=== PATIENT | male | born 1985 | race Caucasian/White ===

== ENCOUNTER 2018-03-06 12:34 | Emergency (ER) | payer OTHER ==
[2018-03-06 13:04] VITALS: BP 115/71; PULSE 70; RESP 20; TEMP 98
[2018-03-06] MEDS ORDERED: KETOROLAC 30 MG/ML 1 ML VIAL IM STA (13:42)
[2018-03-06] MEDS: ORPHENADRINE 30 MG/ML 2 ML VIAL IM STA ×2 (13:49→14:25)
--- NOTE | 2018-03-06 13:53 | ED ---
Back Pain HPI - General Chief Complaint: Back Pain/Injury Stated Complaint: chest/back pain Time Seen by Provider: 03/06/18 13:35 Source: patient, RN notes reviewed Limitations: no limitations - History of Present Illness Initial Comments: This is a 32-year-old male who presents to the emergency department with chief complaint of back and chest pain. 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 Patient states that over the past 2 days he has had an increase in his mid back pain. He states that recently he had an increase in his work load. 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 He states that the compost is much heavier than the recycling. He states that today while at work he went to dump out a bin and felt a sharp pain in the right side of his chest. He denies any shortness of breath, diaphoresis, nausea or vomiting, dizziness or headache. He denies any family history of heart issues. Patient states that he is right handed so throws by rotating his arms and chest to the left. He denies any other injuries or trauma. - Related Data Previous Rx's Medication Instructions Recorded Cyclobenzaprine [Flexeril] 10 mg PO TID #12 tab 03/06/18 Ibuprofen 600 mg PO Q6HR #30 tablet 03/06/18 Allergies Allergy/AdvReac Type Severity Reaction Status Date / Time No Known Allergies Allergy Verified 03/06/18 13:28 Review of Systems ROS Statement: Those systems with pertinent positive or pertinent negative responses have been documented in the HPI. ROS Other: All systems not noted in ROS Statement are negative. Past Medical History Past Medical History: No Reported History History of Any Multi-Drug Resistant Organisms: None Reported Past Surgical History: No Surgical Hx Reported Past Psychological History: No Psychological Hx Reported Smoking Status: Current every day smoker Past Alcohol Use History: Rare Past Drug Use History: Marijuana General Exam - General Exam Comments Initial Comments: General: Awake and alert, well-developed; in no apparent distress. HEENT: Head atraumatic, normocephalic. Pupils are equal, round and reactive to light. Extraocular movements intact. Oropharynx moist without erythema or exudate. Neck: Supple. Normal ROM. Cardiovascular: Regular rate and rhythm. No murmurs, rubs or gallops. Chest symmetrical. Tenderness on palpation of right costal cartilage and connecting ribs. Respiratory: Lungs clear to auscultation bilaterally. No wheezes, rales or rhonchi. Normal respiratory effort with no use of accessory muscles. Musculoskeletal: Normal ROM, no tenderness bilateral upper and lower extremities. Ambulating normally. Tenderness on palpation thoracic paraspinal muscles, more so on the right side. Sensation is intact. Pedal pulses are 2+ equal and palpable bilaterally. Skin: [place], warm and dry without rashes or lesions. Neurological: Alert and oriented x3. CN II-XII grossly intact. Speech is fluent and answers are appropriate. No focal neuro deficits. Psychiatric: Normal mood and affect. No overt signs of depression or anxiety noted. Limitations: no limitations Course Vital Signs 03/06/18 13:01 Temperature 98.0 F Pulse Rate 70 Respiratory 20 Rate Blood Pressure 115/71 O2 Sat by Pulse 98 Oximetry Medical Decision Making - Medical Decision Making This is a 32-year-old male who presents to the emergency department with chief complaint of back pain that radiates to his chest. Patient states that he does have chronic back pain. 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 He states that 2 days ago he developed an increase in his back pain and today developed a pain in the right side of his chest. Right-sided costal cartilage and connecting ribs are tender on palpation. Thoracic paraspinal muscles are tender on palpation. Lungs are clear to auscultation bilaterally. EKG revealed sinus bradycardia, however no evidence of ST segment elevation or depression. Chest x-ray did reveal evidence for bronchitis or reactive airways disease. Patient does state that he is a current, every day smoker and denies shortness of breath or recent fevers. Vital signs are stable and patient is afebrile. He is in no acute distress. Patient likely suffering from costochondritis and muscle strain. He will be treated with anti-inflammatories and muscle relaxers. Patient will be discharged home at this time. He is in agreement with plan and voices understanding. All questions were answered. - EKG Data EKG Comments: 14:01:28. Sinus bradycardia. Ventricular rate 51 bpm, TN interval 128, QRS duration 90, QT/QTC 388/357 - Radiology Data Radiology results: report reviewed Chest x-ray impression: Correlate to exclude bronchitis, reactive airways disease. Additional findings above. Follow-up as indicated. Disposition Clinical Impression: Thoracic back pain, Chest wall pain Disposition: HOME SELF-CARE Condition: Good Instructions: Thoracic Back Strain (ED), Chest Wall Pain (ED) Additional Instructions: Please take medications as prescribed. Please follow up with primary care provider within 1-2 days. Return to emergency department if symptoms should worsen or any concerns arise. Prescriptions: Cyclobenzaprine [Flexeril] 10 mg PO TID #12 tab Ibuprofen 600 mg PO Q6HR #30 tablet Is patient prescribed a controlled substance at d/c from ED?: No Referrals: None,Stated [Primary Care Provider] - 1-2 days Time of Disposition: 14:22
--- NOTE | 2018-03-06 14:03 | XR ---
EXAMINATION TYPE: XR chest 2V DATE OF EXAM: 03/06/2018 COMPARISON: NONE HISTORY: Chest wall pain TECHNIQUE: Frontal and lateral views of the chest are obtained. FINDINGS: There is no focal air space opacity, pleural effusion, or pneumothorax seen. The cardiac silhouette size is within normal limits. The osseous structures are intact. Question of superior di splacement of the distal clavicles relation to the acromion may be projectional and is symmetric. Que stion bronchial wall thickening. IMPRESSION: Correlate to exclude bronchitis, reactive airways disease. Additional findings above. Fo llow-up as indicated.
== END 2018-03-06 14:35 | disposition home or self-care (01) ==
LOC: EC 12:34
DX: G89.29 Other chronic pain (principal); M54.6 Pain in thoracic spine; R07.89 Other chest pain; R00.1 Bradycardia, unspecified; F17.200 Nicotine dependence, unspecified, uncomplicated; Z53.20 Procedure and treatment not carried out because of patient's decision for unspecified reasons
CPT/HCPCS: 93005; 71046; 99285; 96372; J1885

== ENCOUNTER → 2018-04-07 | Outpatient (CLI) | payer OTHER ==
--- NOTE | 2018-04-08 08:07 | XR ---
EXAMINATION TYPE: XR thoracic spine complete DATE OF EXAM: 04/07/2018 COMPARISON: NONE HISTORY: Back pain Alignment is anatomic. There is no compression deformities. Vertebral body height and disc interspa yoandy are maintained. Curvature of the spine noted. IMPRESSION: 1. No acute abnormality.
== END | disposition home or self-care (01) ==
LOC: RADXRMAIN 16:21
PROVIDERS: ATTEND Family Medicine
DX: M54.6 Pain in thoracic spine (principal)
CPT/HCPCS: 72072

== ENCOUNTER → 2018-05-12 | Outpatient (CLI) | payer OTHER ==
--- NOTE | 2018-05-13 08:27 | XR ---
Lumbar spine HISTORY: Back pain 3 views of the lumbar spine No comparisons Lumbar vertebral bodies show preserved height, alignment, and bone mineralization. Disc spaces are ma intained. Mild multilevel spondylosis is noted. IMPRESSION: Lumbar spondylosis, consider MRI.
== END | disposition home or self-care (01) ==
LOC: RADXRMAIN 16:08
PROVIDERS: ATTEND Family Medicine
DX: M47.816 Spondylosis without myelopathy or radiculopathy, lumbar region (principal)
CPT/HCPCS: 72100

== ENCOUNTER 2019-05-23 08:29 | Inpatient (IN) | payer MEDICAID, OTHER ==
[2019-05-23] MEDS ORDERED: SODIUM CHLORIDE 0.9% 1,000 ML IV STA (08:41)
--- NOTE | 2019-05-23 09:10 | ED ---
General Adult HPI <Hermes Elias - Last Filed: 05/23/19 15:00> - General Source: patient, RN notes reviewed, old records reviewed Mode of arrival: ambulatory Limitations: no limitations <Solomon Bowling - Last Filed: 05/23/19 16:29> - General Chief complaint: Overdose Stated complaint: Vomiting-overdose Time Seen by Provider: 05/23/19 08:41 - History of Present Illness Initial comments: 33-year-old male patient with no pertinent past medical history presents ED chief complaint of suicidal ideations and depression. Patient was these been going through a bed breakup with significant other. Patient works in the last week he has been taking narcotic pain medications are not prescribed to him. Frederic dawkins reports that he has been taking multiple Vicodin per day. Patient also reports that he has taken approximately 5 Xanax pills last 24 hours. Patient reports taking approximately 3-4 ibuprofens as well. Patient denies taking any other medications. Patient reports that he has had the cellulitis had nausea and vomiting for approximately 3 hours. Patient denies any other complaints. Patient denies any pain anywhere. Systemic: Pt denies fatigue, fever/chills, rash. Pt denies weakness, night sweats, weight loss. Neuro: Pt denies headache, visual disturbances, syncope or pre-syncope. HEENT: Pt denies ocular discharge or irritation, otalgia, rhinorrhea, pharyngitis or notable lymphadenopathy. Cardiopulmonary: Pt denies chest pain, SOB, heart palpitations, dyspnea on exertion. Abdominal/GI: Pt denies abdominal pain, n/v/d. : Pt denies dysuria, burning w/ urination, frequency/urgency. Denies new onset urinary or bowel incontinence. MSK: Pt denies myalgia, loss of strength or function in extremities. Neuro: Pt denies new onset weakness, paresthesias. (Solomon Bowling) - Related Data Home Medications Medication Instructions Recorded Confirmed Dextroamphetamine/Amphetamine 20 mg PO DAILY 05/23/19 05/23/19 [Adderall Xr] Allergies Allergy/AdvReac Type Severity Reaction Status Date / Time No Known Allergies Allergy Verified 05/23/19 08:52 Review of Systems ROS Other: All systems not noted in ROS Statement are negative. <CurtHermes - Last Filed: 05/23/19 15:00> ROS Other: All systems not noted in ROS Statement are negative. <Solomon Bowling - Last Filed: 05/23/19 16:29> ROS Statement: Those systems with pertinent positive or pertinent negative responses have been documented in the HPI. Past Medical History Past Medical History: No Reported History History of Any Multi-Drug Resistant Organisms: None Reported Past Surgical History: Orthopedic Surgery Past Psychological History: No Psychological Hx Reported Smoking Status: Current every day smoker Past Alcohol Use History: Rare Past Drug Use History: Marijuana <VanessaSolomon mitchell Elizabeth - Last Filed: 05/23/19 16:29> General Exam Limitations: no limitations <Solomon Bowling Elizabeth - Last Filed: 05/23/19 16:29> - General Exam Comments Initial Comments: Constitutional: NAD, AOX3, Pt has pleasant affect. HEENT: NC/AT, trachea midline, neck supple, no lymphadenopathy. Posterior pharynx non erythematous, without exudates. External ears appear normal, without discharge. Mucous membranes moist. Eyes PERRLA, EOM intact. There is no scleral icterus. No pallor noted. Cardiopulmonary: RRR, no murmurs, rubs or gallops, no JVD noted. Lungs CTAB in anterior and posterior bryant. No peripheral edema. Abdominal exam: Abdomen soft and non-distended. Abdomen non-tender to palpation in all 4 quadrants. Bowel sounds active in LLQ. No hepatosplenomegaly. No ecchymosis Neuro: CN II-XII intact. No nuchal rigidity. No raccon eyes, no harvey sign, no hemotympanum. No cervical spinal tenderness. MSK: No posterior calf tenderness bilaterally, homans sign negative bilaterally. Posterior tibialis and radial pulse +2 bilaterally. Sensation intact in upper and lower extremities. Full active ROM in upper and lower extremities, 5/5 stregnth. (Solomon Bowling) Course <Hermes Elias - Last Filed: 05/23/19 15:00> Vital Signs 05/23/19 05/23/19 05/23/19 08:30 09:08 09:30 Temperature 97.6 F Pulse Rate 82 66 65 Respiratory 18 16 16 Rate Blood Pressure 133/73 114/69 114/69 O2 Sat by Pulse 98 96 97 Oximetry 05/23/19 05/23/19 05/23/19 10:00 10:30 11:00 Temperature Pulse Rate 68 78 76 Respiratory 15 17 16 Rate Blood Pressure 99/64 100/69 110/68 O2 Sat by Pulse 97 98 97 Oximetry 05/23/19 05/23/19 05/23/19 11:30 12:00 12:30 Temperature Pulse Rate 73 68 66 Respiratory 18 18 18 Rate Blood Pressure 114/74 111/72 113/72 O2 Sat by Pulse 98 97 96 Oximetry 05/23/19 05/23/19 05/23/19 13:00 13:30 14:00 Temperature Pulse Rate 61 66 80 Respiratory 18 16 18 Rate Blood Pressure 115/75 106/77 112/78 O2 Sat by Pulse 98 97 Oximetry 05/23/19 05/23/19 05/23/19 14:30 15:00 15:30 Temperature Pulse Rate 62 75 74 Respiratory 18 Rate Blood Pressure 124/84 115/82 120/81 O2 Sat by Pulse 97 97 98 Oximetry 05/23/19 16:00 Temperature Pulse Rate 66 Respiratory Rate Blood Pressure 121/90 O2 Sat by Pulse 99 Oximetry - Reevaluation(s) Reevaluation #1: 05/23/19 15:01 PA supervision I personally did evaluate this case and do agree with the assessment and plan patient be admitted. (Hermes Elias) Medical Decision Making - Lab Data Result diagrams: 05/23/19 09:05 05/23/19 09:05 <Hermes Elias - Last Filed: 05/23/19 15:00> - Lab Data Result diagrams: 05/23/19 09:05 05/23/19 09:05 - EKG Data -: EKG Interpreted by Me (and Dr. Elias) <Solomon Bowling - Last Filed: 05/23/19 16:29> - Medical Decision Making 33-year-old male patient with no pertinent past medical history presents ED chief complaint of suicidal ideations and depression. Patient was these been going through a bed breakup with significant other. Patient works in the last week he has been taking narcotic pain medications are not prescribed to him. Patient reports that he has been taking multiple Vicodin per day. Patient also reports that he has taken approximately 5 Xanax pills last 24 hours. Patient reports taking approximately 3-4 ibuprofens as well. Patient denies taking any other medications. Patient reports that he has had the cellulitis had nausea and vomiting for approximately 3 hours. Patient denies any other complaints. Patient denies any pain anywhere. Patient vital signs stable, afebrle. Physical exam did not display acute pathology. Labs investigations displayed non- impressive CBC, CMP, coagulation studies. Troponin negative, UA negative, tox screen revealed positive opiates, amphetamines, benzodiazepines, marijuana. Salicylate and acetaminophen negative. Serum alcohol 11. EKG not concerning For acute ischemia. Patient evaluated by EPS and will be admitted. Poison control was contacted and is in agreement with plan. Case discussed with Dr. Elias. (Solomon Bowling) - Lab Data Lab Results 05/23/19 05/23/19 05/23/19 Range/Units 09:05 09:05 09:05 WBC 7.3 (3.8-10.6) k/uL RBC 4.39 (4.30-5.90) m/uL Hgb 13.8 (13.0-17.5) gm/dL Hct 40.5 (39.0-53.0) % MCV 92.2 (80.0-100.0) fL MCH 31.4 (25.0-35.0) pg MCHC 34.1 (31.0-37.0) g/dL RDW 12.8 (11.5-15.5) % Plt Count 199 (150-450) k/uL Neutrophils % 54 % Lymphocytes % 37 % Monocytes % 5 % Eosinophils % 1 % Basophils % 0 % Neutrophils # 4.0 (1.3-7.7) k/uL Lymphocytes # 2.7 (1.0-4.8) k/uL Monocytes # 0.4 (0-1.0) k/uL Eosinophils # 0.1 (0-0.7) k/uL Basophils # 0.0 (0-0.2) k/uL PT 10.8 (9.0-12.0) sec INR 1.0 (<1.2) APTT 22.2 (22.0-30.0) sec Sodium 140 (137-145) mmol/L Potassium 3.5 (3.5-5.1) mmol/L Chloride 104 (98-107) mmol/L Carbon Dioxide 26 (22-30) mmol/L Anion Gap 10 mmol/L BUN 5 L (9-20) mg/dL Creatinine 0.75 (0.66-1.25) mg/dL Est GFR (CKD-EPI)AfAm >90 (>60 ml/min/1.73 sqM) Est GFR (CKD-EPI)NonAf >90 (>60 ml/min/1.73 sqM) Glucose 102 H (74-99) mg/dL Calcium 8.7 (8.4-10.2) mg/dL Total Bilirubin 0.4 (0.2-1.3) mg/dL AST 20 (17-59) U/L ALT 25 (21-72) U/L Alkaline Phosphatase 45 (38-126) U/L Creatine Kinase 77 (55-170) U/L Troponin I (0.000-0.034) ng/mL Total Protein 6.6 (6.3-8.2) g/dL Albumin 4.0 (3.5-5.0) g/dL Urine Color Urine Appearance (Clear) Urine pH (5.0-8.0) Ur Specific [place] (1.001-1.035) Urine Protein (Negative) Urine Glucose (UA) (Negative) Urine Ketones (Negative) Urine Blood (Negative) Urine Nitrite (Negative) Urine Bilirubin (Negative) Urine Urobilinogen (<2.0) mg/dL Ur Leukocyte Esterase (Negative) Salicylates <1.0 mg/dL Urine Opiates Screen (NotDetected) Ur Oxycodone Screen (NotDetected) Urine Methadone Screen (NotDetected) Ur Propoxyphene Screen (NotDetected) Acetaminophen <10.0 ug/mL Ur Barbiturates Screen (NotDetected) U Tricyclic Antidepress (NotDetected) Ur Phencyclidine Scrn (NotDetected) Ur Amphetamines Screen (NotDetected) U Methamphetamines Scrn (NotDetected) U Benzodiazepines Scrn (NotDetected) Urine Cocaine Screen (NotDetected) U Marijuana (THC) Screen (NotDetected) Serum Alcohol 11 mg/dL 05/23/19 05/23/19 Range/Units 09:05 11:54 WBC (3.8-10.6) k/uL RBC (4.30-5.90) m/uL Hgb (13.0-17.5) gm/dL Hct (39.0-53.0) % MCV (80.0-100.0) fL MCH (25.0-35.0) pg MCHC (31.0-37.0) g/dL RDW (11.5-15.5) % Plt Count (150-450) k/uL Neutrophils % % Lymphocytes % % Monocytes % % Eosinophils % % Basophils % % Neutrophils # (1.3-7.7) k/uL Lymphocytes # (1.0-4.8) k/uL Monocytes # (0-1.0) k/uL Eosinophils # (0-0.7) k/uL Basophils # (0-0.2) k/uL PT (9.0-12.0) sec INR (<1.2) APTT (22.0-30.0) sec Sodium (137-145) mmol/L Potassium (3.5-5.1) mmol/L Chloride (98-107) mmol/L Carbon Dioxide (22-30) mmol/L Anion Gap mmol/L BUN (9-20) mg/dL Creatinine (0.66-1.25) mg/dL Est GFR (CKD-EPI)AfAm (>60 ml/min/1.73 sqM) Est GFR (CKD-EPI)NonAf (>60 ml/min/1.73 sqM) Glucose (74-99) mg/dL Calcium (8.4-10.2) mg/dL Total Bilirubin (0.2-1.3) mg/dL AST (17-59) U/L ALT (21-72) U/L Alkaline Phosphatase (38-126) U/L Creatine Kinase (55-170) U/L Troponin I <0.012 (0.000-0.034) ng/mL Total Protein (6.3-8.2) g/dL Albumin (3.5-5.0) g/dL Urine Color Light Yellow Urine Appearance Clear (Clear) Urine pH 6.5 (5.0-8.0) Ur Specific [place] 1.007 (1.001-1.035) Urine Protein Negative (Negative) Urine Glucose (UA) Negative (Negative) Urine Ketones Negative (Negative) Urine Blood Negative (Negative) Urine Nitrite Negative (Negative) Urine Bilirubin Negative (Negative) Urine Urobilinogen <2.0 (<2.0) mg/dL Ur Leukocyte Esterase Negative (Negative) Salicylates mg/dL Urine Opiates Screen Detected H (NotDetected) Ur Oxycodone Screen Not Detected (NotDetected) Urine Methadone Screen Not Detected (NotDetected) Ur Propoxyphene Screen Not Detected (NotDetected) Acetaminophen ug/mL Ur Barbiturates Screen Not Detected (NotDetected) U Tricyclic Antidepress Not Detected (NotDetected) Ur Phencyclidine Scrn Not Detected (NotDetected) Ur Amphetamines Screen Detected H (NotDetected) U Methamphetamines Scrn Not Detected (NotDetected) U Benzodiazepines Scrn Detected H (NotDetected) Urine Cocaine Screen Not Detected (NotDetected) U Marijuana (THC) Screen Detected H (NotDetected) Serum Alcohol mg/dL - EKG Data EKG Comments: Ventricular rate 60, NV interval 134, QRS 96, QT/QTC 380/44, normal sinus rhythm, normal EKG, no concern for acute ischemia. (Solomon Bowling) Disposition <Hermes Elias - Last Filed: 05/23/19 15:00> Is patient prescribed a controlled substance at d/c from ED?: No <Solomon Bowling - Last Filed: 05/23/19 16:29> Clinical Impression: Suicidal ideations, Substance abuse Disposition: ADMITTED IP TO THIS HOSP Condition: Serious Referrals: Christian Sorto MD [Primary Care Provider] - 1-2 days
[2019-05-23 09:23] LABS: Basophils % (A) 0 %; Eosinophils # (A) 0.1 k/uL (0-0.7); Eosinophils % (A) 1 %; HCT 40.5 % (39.0-53.0); HGB 13.8 gm/dL (13.0-17.5); Lymphocytes # (A) 2.7 k/uL (1.0-4.8); Lymphocytes % (A) 37 %; MCH 31.4 pg (25.0-35.0); MCHC 34.1 g/dL (31.0-37.0); MCV 92.2 fL (80.0-100.0); Mean Platelet Volume 9.7; Monocytes # (A) 0.4 k/uL (0-1.0); Monocytes % (A) 5 %; Neutrophils % (A) 54 %; Platelet Count 199 k/uL (150-450); RBC 4.39 m/uL (4.30-5.90); RDW 12.8 % (11.5-15.5); WBC 7.3 k/uL (3.8-10.6)
[2019-05-23 09:37] LABS: ALT 25 U/L (21-72); AST 20 U/L (17-59); Acetaminophen <10.0 ug/mL; African American GFR (CKD) >90 (>60 ml/min/1.73 sqM); Alcohol 11 mg/dL; Alkaline Phosphatase 45 U/L (38-126); Anion Gap 10 mmol/L; Blood Urea Nitrogen 5 mg/dL (9-20); Calcium 8.7 mg/dL (8.4-10.2); Carbon Dioxide 26 mmol/L (22-30); Chloride 104 mmol/L (98-107); Creatine Kinase 77 U/L (55-170); Glucose 102 mg/dL (74-99); Potassium 3.5 mmol/L (3.5-5.1); Salicylate <1.0 mg/dL; Sodium 140 mmol/L (137-145); Total Bilirubin 0.4 mg/dL (0.2-1.3); Total Protein 6.6 g/dL (6.3-8.2)
[2019-05-23 09:39] LABS: Partial Thromboplastin Time 22.2 sec (22.0-30.0); Prothrombin Time 10.8 sec (9.0-12.0)
[2019-05-23 12:07] LABS: Appearance,Urine Clear (Clear); Bilirubin,Urine Negative (Negative); Blood,Urine Negative (Negative); Color,Urine Light Yellow; Glucose,Urine (UA) Negative (Negative); Ketones,Urine Negative (Negative); Leukocyte Esterase,Urine Negative (Negative); Nitrite,Urine Negative (Negative); PH, Urine 6.5 (5.0-8.0); Protein,Urine Negative (Negative); Specific Gravity,Urine 1.007 (1.001-1.035); Urobilinogen,Urine <2.0 mg/dL (<2.0)
[2019-05-23 12:21] LABS: Amphetamine Screen,Urine Detected (NotDetected); Barbiturate Screen,Urine Not Detected (NotDetected); Benzodiazepines Screen,Urine Detected (NotDetected); Cocaine Screen,Urine Not Detected (NotDetected); Methadone Screen, Urine Not Detected (NotDetected); Opiate Screen,Urine Detected (NotDetected); Oxycodone Screen, Urine Not Detected (NotDetected); Phencyclidine Screen,Urine Not Detected (NotDetected); Tricyclic Antidepressant,Urine Not Detected (NotDetected); Urn Cannabinoid Scrn Detected (NotDetected)
[2019-05-23 21:18] LABS: Basophils % (A) 0 %; Eosinophils # (A) 0.1 k/uL (0-0.7); Eosinophils % (A) 1 %; HCT 43.2 % (39.0-53.0); HGB 14.2 gm/dL (13.0-17.5); Lymphocytes # (A) 3.3 k/uL (1.0-4.8); Lymphocytes % (A) 32 %; MCH 30.8 pg (25.0-35.0); MCV 93.4 fL (80.0-100.0); Mean Platelet Volume 10.3; Monocytes # (A) 0.6 k/uL (0-1.0); Monocytes % (A) 5 %; Neutrophils # (A) 6.1 k/uL (1.3-7.7); Neutrophils % (A) 59 %; Platelet Count 192 k/uL (150-450); RBC 4.62 m/uL (4.30-5.90); RDW 14.1 % (11.5-15.5); WBC 10.3 k/uL (3.8-10.6)
[2019-05-23 21:23] LABS: ALT 26 U/L (21-72); AST 23 U/L (17-59); African American GFR (CKD) >90 (>60 ml/min/1.73 sqM); Alkaline Phosphatase 51 U/L (38-126); Anion Gap 6 mmol/L; Blood Urea Nitrogen 6 mg/dL (9-20); Calcium 9.3 mg/dL (8.4-10.2); Carbon Dioxide 26 mmol/L (22-30); Chloride 109 mmol/L (98-107); Glucose 87 mg/dL (74-99); Potassium 4.2 mmol/L (3.5-5.1); Sodium 141 mmol/L (137-145); Total Bilirubin 0.7 mg/dL (0.2-1.3); Total Protein 6.6 g/dL (6.3-8.2)
[2019-05-23] MEDS: NICOTINE 21MG/24HR PATCH TRANSDERM SCH (22:14)
[2019-05-24] MEDS: NICOTINE 21MG/24HR PATCH TRANSDERM SCH (18:09)
[2019-05-25] MEDS ORDERED: ACETAMINOPHEN TAB 325 MG TAB PO PRN (19:23)
[2019-05-25] MEDS ORDERED: ZIPRASIDONE 20 MG VIAL IM PRN (19:23)
[2019-05-25] MEDS ORDERED: MAG HYDROX/AL HYDROX/SIMETH 30 ML CUP PO PRN (19:23)
[2019-05-25] MEDS ORDERED: MAGNESIUM HYDROXIDE 2,400 MG/10 ML CUP PO PRN (19:23)
[2019-05-25] MEDS ORDERED: LORazepam 2 MG/ML INJ IM PRN (19:27)
[2019-05-25] MEDS ORDERED: LORazepam 1 MG TAB PO PRN (19:27)
[2019-05-26] MEDS: NICOTINE 21MG/24HR PATCH TRANSDERM SCH ×2 (05:09→09:38)
[2019-05-26] MEDS: FLUoxetine HCL 10 MG CAP PO SCH (12:31)
--- NOTE | 2019-05-26 13:56 | P.HP ---
Psychiatric H&P - . H&P Date: 05/26/19 History & Physical: Allergies Allergy/AdvReac Type Severity Reaction Status Date / Time No Known Allergies Allergy Verified 05/25/19 18:58 Vital Signs Temp 98.2 F 05/26/19 06:49 Pulse 58 L 05/26/19 06:49 Resp 16 05/26/19 06:49 BP 93/56 05/26/19 06:49 Pulse Ox 100 05/25/19 18:45 Intake & Output 05/25/19 05/26/19 05/26/19 18:59 06:59 18:59 Weight 54.431 kg Laboratory Last Values WBC 10.3 k/uL (3.8-10.6) 05/23/19 17:15 RBC 4.62 m/uL (4.30-5.90) 05/23/19 17:15 Hgb 14.2 gm/dL (13.0-17.5) 05/23/19 17:15 Hct 43.2 % (39.0-53.0) 05/23/19 17:15 MCV 93.4 fL (80.0-100.0) 05/23/19 17:15 MCH 30.8 pg (25.0-35.0) 05/23/19 17:15 MCHC 33.0 g/dL (31.0-37.0) 05/23/19 17:15 RDW 14.1 % (11.5-15.5) 05/23/19 17:15 Plt Count 192 k/uL (150-450) 05/23/19 17:15 Neutrophils % 59 % 05/23/19 17:15 Lymphocytes % 32 % 05/23/19 17:15 Monocytes % 5 % 05/23/19 17:15 Eosinophils % 1 % 05/23/19 17:15 Basophils % 0 % 05/23/19 17:15 Neutrophils # 6.1 k/uL (1.3-7.7) 05/23/19 17:15 Lymphocytes # 3.3 k/uL (1.0-4.8) 05/23/19 17:15 Monocytes # 0.6 k/uL (0-1.0) 05/23/19 17:15 Eosinophils # 0.1 k/uL (0-0.7) 05/23/19 17:15 Basophils # 0.0 k/uL (0-0.2) 05/23/19 17:15 PT 10.8 sec (9.0-12.0) 05/23/19 09:05 INR 1.0 (<1.2) 05/23/19 09:05 APTT 22.2 sec (22.0-30.0) 05/23/19 09:05 Sodium 141 mmol/L (137-145) 05/23/19 17:15 Potassium 4.2 mmol/L (3.5-5.1) 05/23/19 17:15 Chloride 109 mmol/L (98-107) H 05/23/19 17:15 Carbon Dioxide 26 mmol/L (22-30) 05/23/19 17:15 Anion Gap 6 mmol/L 05/23/19 17:15 BUN 6 mg/dL (9-20) L 05/23/19 17:15 Creatinine 0.72 mg/dL (0.66-1.25) 05/23/19 17:15 Est GFR (CKD-EPI)AfAm >90 (>60 ml/min/1.73 sqM) 05/23/19 17:15 Est GFR (CKD-EPI)NonAf >90 (>60 ml/min/1.73 sqM) 05/23/19 17:15 Glucose 87 mg/dL (74-99) 05/23/19 17:15 Calcium 9.3 mg/dL (8.4-10.2) 05/23/19 17:15 Total Bilirubin 0.7 mg/dL (0.2-1.3) 05/23/19 17:15 AST 23 U/L (17-59) 05/23/19 17:15 ALT 26 U/L (21-72) 05/23/19 17:15 Alkaline Phosphatase 51 U/L (38-126) 05/23/19 17:15 Creatine Kinase 77 U/L (55-170) 05/23/19 09:05 Troponin I <0.012 ng/mL (0.000-0.034) 05/23/19 09:05 Total Protein 6.6 g/dL (6.3-8.2) 05/23/19 17:15 Albumin 4.0 g/dL (3.5-5.0) 05/23/19 17:15 Triglycerides 167 mg/dL (<150) H 05/23/19 09:05 Cholesterol 137 mg/dL (<200) 05/23/19 09:05 LDL Cholesterol, Calc 75 mg/dL (0-99) 05/23/19 09:05 HDL Cholesterol 29 mg/dL (40-60) L 05/23/19 09:05 TSH 0.848 mIU/L (0.465-4.680) 05/23/19 09:05 Urine Color Light Yellow 05/23/19 11:54 Urine Appearance Clear (Clear) 05/23/19 11:54 Urine pH 6.5 (5.0-8.0) 05/23/19 11:54 Ur Specific [place] 1.007 (1.001-1.035) 05/23/19 11:54 Urine Protein Negative (Negative) 05/23/19 11:54 Urine Glucose (UA) Negative (Negative) 05/23/19 11:54 Urine Ketones Negative (Negative) 05/23/19 11:54 Urine Blood Negative (Negative) 05/23/19 11:54 Urine Nitrite Negative (Negative) 05/23/19 11:54 Urine Bilirubin Negative (Negative) 05/23/19 11:54 Urine Urobilinogen <2.0 mg/dL (<2.0) 05/23/19 11:54 Ur Leukocyte Esterase Negative (Negative) 05/23/19 11:54 Salicylates <1.0 mg/dL 05/23/19 09:05 Urine Opiates Screen Detected (NotDetected) H 05/23/19 11:54 Ur Oxycodone Screen Not Detected (NotDetected) 05/23/19 11:54 Urine Methadone Screen Not Detected (NotDetected) 05/23/19 11:54 Ur Propoxyphene Screen Not Detected (NotDetected) 05/23/19 11:54 Acetaminophen <10.0 ug/mL 05/23/19 09:05 Ur Barbiturates Screen Not Detected (NotDetected) 05/23/19 11:54 U Tricyclic Antidepress Not Detected (NotDetected) 05/23/19 11:54 Ur Phencyclidine Scrn Not Detected (NotDetected) 05/23/19 11:54 Ur Amphetamines Screen Detected (NotDetected) H 05/23/19 11:54 U Methamphetamines Scrn Not Detected (NotDetected) 05/23/19 11:54 U Benzodiazepines Scrn Detected (NotDetected) H 05/23/19 11:54 Urine Cocaine Screen Not Detected (NotDetected) 05/23/19 11:54 U Marijuana (THC) Screen Detected (NotDetected) H 05/23/19 11:54 Serum Alcohol 11 mg/dL 05/23/19 09:05 05/26/19 13:40 Identification: Patient presented to the emergency room after taking an overdose of Xanax and Vicodin stating that he hadn't been feeling depressed and suicidal. History of Present Illness: Patient states that he has not been doing well recently due to the breakup of his marriage and the loss of his job. States that he and his have been for 4 years and that she cheated on him and filed for divorce 8 months ago. He states that 3 weeks ago he started to use Vicodin and Xanax, purchasing them from the street to fit in with her and her friends. He states that he is a recovering alcohol user and had no prior use of pain medications. He states that he moved out of the house and been living with his parents but was at the house daily until the children went to bed. He states that Saturday prior to discharging his went out, she left with the man she been having an affair with and she lied to both of them. She stated to the gentleman that her had abandon her in a bar and this gentleman contacted the patient telling him that the patient stated that he had not but that she had left him. Patient states he became more upset and depressed and took an overdose of Vicodin and Xanax and then called a friend who is a recovering substance user who brought him to the hospital. 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 Prior to this he had been working in [employer] but was let go from that job after he sustained an injury and had difficulty getting back to work and he decided to quit that job and start this new job. Patient does not endorse a history for prior treatment for depression and states that he is never felt this way in the past. Patient states that he has been taking Adderall 20 mg extended release prescribed by his PCP for what he describes as hyperactivity. Patient states that he was not on it when he was a young child but in the 6 grade was prescribed it after they moved to a different school district. He states that he was an a and B student prior to the 6 grade but once they moved he got in with the wrong crowd his grades dropped, he was placed on Ritalin for several years with no change in his grades and hot out with the wrong crowd. He states he began using alcohol and marijuana and began having problems in school and completing his work. He was asked to leave the 10th grade due to possession of marijuana. Patient does not endorse a history of auditory or visual hallucinations, delusional or paranoid ideation and no manic symptoms. Patient does not endorse ever having been depressed in the past nor having suicidal thoughts and denies any prior suicide attempts. He does not endorse any anxiety symptoms. Patient states he's never been placed on any psychotropic medication is never received any psychiatric treatment. Past Psychiatric History: Patient denies any prior outpatient or inpatient psychiatric treatment and has never been placed on psychotropic medications other than Ritalin as a child and Adderall recently for the last year and a half by his primary care physician. Past Medical/Surgical History: Patient states he has no medical problems and the only surgery is had is on his right hand, the fifth digit which he crushed while working on a [employer] truck Family History: Patient reports no psychiatric history in the family, no alcohol or drug use problems and states that 2 maternal uncles completed suicide but is unaware of any psychiatric or other concerns that they may have had Social History: Patient was born and raised in [place], his parents are both alive and he has 2 siblings. He completed the 10th grade. Patient has not obtained his GED. 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 He has been once currently for 4 years and she has filed for divorce. He has 5 children and a 13-year-old from a prior relationship, and 11 and 8-year-old from a prior relationship and 2-1/2-year-old and 1-1/2-year-old from his current . Patient is currently living with his parents. Patient denies any abuse history. Substance Use History: Patient states he began using alcohol in the ninth grade and states he drank heavily a half gallon a day until he passed out until he was 23 years of age. He states he received 2 DUIs and after that stopped drinking for 21-25. He states he uses alcohol now is a social drinker and perhaps as a drink once every 3 months. Patient reports using marijuana in the ninth grade and currently has been using it 3 times a week to help him sleep and calm down. He states he's tried cocaine in the past and denies any methamphetamine use. He denies ever abusing his amphetamine prescriptions. Patient has been recently for the last 3 weeks purchasing Xanax and Vicodin on the street and states he's been taking 0.5 mg tablets 1-2 daily and one Vicodin daily. 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, has been charged with manufacturing and delivery of marijuana, possession of an analog, and felony assault Mental status: Appearance/Attitude: Patient is casually dressed, makes eye contact and is cooperative Behavior: Patient does not exhibit any psychomotor agitation or retardation Speech/Language: Patient's speech is spontaneous of normal volume and rhythm and he is coherent Thought Process: Patient is goal-directed there is no evidence of loose association or flight of ideas Thought Content: Patient denies any auditory or visual hallucinations and no delusions or paranoid ideation or elicited. Patient states that he has not been sleeping, feeling increasingly tired and unmotivated. Patient states that he has been having difficulties in his marriage began using drugs to try to fit in with his life. Patient states that he feels like a failure and doesn't feel that he's amounted to anything. Patient states his sleep is been disrupted at home and his appetite is fair Suicidal/Homicidal Ideation: Patient denies any current suicidal or homicidal ideation Sensorium/Cognition: Patient is alert and oriented to person, place, and time and his recent and remote memory are grossly intact Mood/Affect: Patient is depressed and his affect is slightly blunted Insight/Judgment: Patient's insight and judgment are fair Intellectual Functioning: Patient's intellectual functioning appears average Strength/Weakness: Patient has housing/use of alcohol and drugs, limited coping skills Assessment: Patient presents after he states he began using Xanax and Vicodin to fit in with his over the last 3 weeks because the 2 of them have not been doing well and she filed for divorce 8 months ago due to having an extramarital affair. Patient states he became increasingly depressed after she lied about leaving with the boyfriend while they were out on Saturday night and took an overdose of Vicodin and Xanax and called a friend of his who is recovering substance user and asked them to take him to the hospital. Patient states that he's been increasingly depressed due to the marital problems as well as to not working for the last several weeks. Patient states that he feels that he has not been successful, has been a failure in his life is not amounted to much. Patient's been treated with Adderall by his PCP for problems focusing for the last year and a half. Patient does not endorse a history of attention deficit the first 6 years he was in school and attained a B's and states that his academic performance changed once he changed schools and how well the wrong crowd. Patient does use alcohol the past but states that he only uses it occasionally now. Patient does use marijuana once to 3 times a week to help him feel calmer and sleep. Admission Diagnosis: Major depressive disorder, single episode, moderate severity; cannabis use disorder, mild; alcohol use disorder in partial remission Plan: Patient was admitted on a voluntary basis, placed on routine observation and group and activity therapy were ordered. Patient also had routine laboratory studies and a medical consultation ordered. Patient and I discussed that I would not be continuing his Adderall and I did not recommend that he continue this as an outpatient as I do not believe he has symptoms of ADD as he was doing well in school prior to the 6 grade. Patient and I also discussed the use and side effects of antidepressants treat depression and will begin Prozac 10 mg in the morning and I reviewed the use and effects of this medication may also discussed beginning melatonin 3 mg at bedtime to assist with his sleep. Patient was not interested in any inpatient rehab programs and states that he was using the Vicodin and Xanax only to get "in" with his . Patient requir es hospitalization to stabilize his mood.
[2019-05-26 16:37] LABS: Hemoglobin A1C 5.4 % (4.0-6.0)
[2019-05-26] MEDS: MELATONIN 3 MG TABLET PO SCH (22:34)
--- NOTE | 2019-05-26 23:36 | CONS ---
CONSULTATION This is a white male who has been really depressed and taking street drugs from his and from other people he buys them for. He for spent $600 in the last month on street drugs, which included Xanax or Ativan and Vicodin. He is admitted due to severe depression. He states he was taking that for depression and got hooked on it because his kept giving him samples of her own medicine she bought illegally. He is not suicidal at this time. Home medicines include Adderall XR 20 mg daily just for ADD. Currently he is on a nicotine patch, Geodon, melatonin, Ativan and Prozac. Fourteen-point review of systems negative except for mentioned in HPI. VITAL SIGNS: Stable. CARDIOVASCULAR: S1, S2. LUNGS: Clear. GI: Soft. HEMATOLOGY: Negative Homans. PSYCH: Fair mood and affect. He is thin. Answers questions appropriately. He is in no acute distress. Blood pressure 130s over 80s, oxygen 100% on room air. Temperature 98, pulse 50s to 60s. ASSESSMENT: 1. Severe depression. 2. Drug overdose. 3. History of attention deficit disorder. 4. Nicotine addiction. 5. cannabis disorder. 6. Alcohol use disorder. Medically he is stable. Continue on psych medications per psychiatrist. He will need close followup to avoid all his bad company that he hangs out with who do drugs and buy substances over the counter. Labs are reviewed. They are positive for marijuana, benzodiazepine, amphetamines. Continue current treatment. Adderall will be discontinued per Psychiatry. He will follow up as an outpatient with [facility], etc. MMJAMES / WALTERN: [id number] /
[2019-05-27] MEDS: NICOTINE 21MG/24HR PATCH TRANSDERM SCH (08:16)
[2019-05-27] MEDS: FLUoxetine HCL 10 MG CAP PO SCH (08:17)
--- NOTE | 2019-05-27 12:22 | P.PN ---
Progress Note - Text Progress Note Date: 05/27/19 Interval History: Patient is a 34-year-old male who was seen today and he reports that he feeling better, no longer feeling suicidal. He states that he is sleeping well and states that he thought about what was going on and has spoken with his and they have decided to split. Patient states that he sees that his behaviors of using the Vicodin and Xanax were not healthy. Patient states that he physically is feeling better now that he is not taking those medications. Patient states that his brother has offered to have him live at his house for short period of time, he states that he also has a lead on a job here. Patient states he'll return to live with his parents at the time of discharge and has support from a friend who is a recovering substance user. Patient states that he is no side effects from the Prozac. Mental Status: Appearance/Attitude: Patient is neatly dressed, makes eye contact and is cooperative Behavior: Patient does not exhibit any psychomotor agitation or retardation Speech/Language: Patient's speech is spontaneous of normal volume and rhythm and he is coherent Thought Process: Patient is goal-directed there is no evidence of loose associations or flight of ideas Thought Content: Patient denies any auditory or visual hallucinations and no paranoid or delusional ideation is elicited. Patient states that he sees his behavior prior to coming into the hospital was problematic, is no longer feeling suicidal and states that he doesn't feel as depressed. He states that he has decided to continue with the divorce with his and sees that they would be better off following through with that. He states that he has spoken with her about this. Patient states that he is sleeping better and his appetite is good. Suicidal/Homicidal Ideation: Patient denies any current suicidal or homicidal ideation Sensorium/Cognition: Patient is alert and oriented to person, place and time and his recent and remote memory are grossly intact Mood/Affect: Patient's mood is less depressed and his affect is brighter Insight/Judgment: Patient's insight and judgment are fair Assessment: Patient reports that he has decided to continue with the divorce of his feeling that that relationship is not a healthy one. Patient also sees that his behavior prior to coming into the hospital was not healthy. Patient states that he is not having any suicidal thoughts and is feeling less depressed. He is contemplating going to live with his brother for short period of time to get away from the area. He states that he also has a lead on a possible job after discharge. Patient states that he is eating and sleeping well and reported no side effects from the medication. Patient has been attending groups and activities. Plan: Patient will continue on Prozac 10 mg to target his depressive symptoms and we discussed discharged at the end of the week and he was agreeable with this plan.
[2019-05-27] MEDS: MELATONIN 3 MG TABLET PO SCH (22:05)
[2019-05-28 06:50] VITALS: TEMP 98.2
[2019-05-28] MEDS: FLUoxetine HCL 10 MG CAP PO SCH (07:46)
[2019-05-28] MEDS: NICOTINE 21MG/24HR PATCH TRANSDERM SCH (07:46)
[2019-05-28 13:00] VITALS: BMI 17.6
--- NOTE | 2019-05-28 14:28 | P.PN ---
Progress Note - Text Progress Note Date: 05/28/19 Interval History: Patient is a 34-year-old male who was seen today and reports that his energy level has returned, he feels more motivated to do things and states that he is also more focused and has been able to read and concentrate on that. Patient states that he feels physically much better now that he is not taking the Xanax and Vicodin. He states that his friend visited him last night and confirmed that he and I discussed yesterday regarding the use of Xanax. Patient states that he slept well and is eating and is eager to return home. He reports no suicidal thoughts. Mental Status: Appearance/Attitude: Patient is casually dressed, makes eye contact and is cooperative Behavior: Patient does not exhibit any psychomotor agitation or retardation Speech/Language: Patient's speech is spontaneous of normal volume and rhythm and he is coherent Thought Process: Patient is goal-directed there is no evidence of loose association or flight of ideas Thought Content: Patient denies any auditory or visual hallucinations no delusions or paranoid ideation or elicited. Patient states that he is feeling more energized, feeling rested in the morning and physically much better. He states that his interest and motivation to do things has increased and easier to return home and help his parents out with some repairs that are needed there. He states his parents have continued to be supportive of him and that he has told his soon-to-be that he needs to keep his distance. Patient states he sleeping and eating well. Suicidal/Homicidal Ideation: Patient denies any current suicidal or homicidal ideation Sensorium/Cognition: Patient is alert and oriented to person, place, time and his recent and remote memory are grossly intact Mood/Affect: Patient's mood is upbeat and pleasant and his affect is appropriate Insight/Judgment: Patient's insight and judgment are intact Assessment: Patient states that he continues to feel well on the medication, his interest or motivation to do things his return and he feels like he has more energy. He states from physical standpoint he is feeling much better and his focus and concentration have improved stating that he could read a book last evening. Patient met with his friend yesterday and he states that his friend continues to encourage him and he states that his parents of been extremely supportive. Patient reports no side effects from the medication and states he sleeping and eating well. Plan: Patient continue on Prozac 10 mg in the morning, we discussed discharge tomorrow and the patient is in agreement with that stating that the family meeting via phone went well yesterday.
[2019-05-28] MEDS: MELATONIN 3 MG TABLET PO SCH (22:13)
[2019-05-29 06:38] VITALS: BP 112/56; PULSE 58; RESP 16
[2019-05-29] MEDS: FLUoxetine HCL 10 MG CAP PO SCH (07:58)
--- NOTE | 2019-05-29 08:29 | P.DS ---
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 Patient states that he has not been doing well recently due to the breakup of his marriage and the loss of his job. States that he and his have been for 4 years and that she cheated on him and filed for divorce 8 months ago. He states that 3 weeks ago he started to use Vicodin and Xanax, purchasing them from the street to fit in with her and her friends. He states that he is a recovering alcohol user and had no prior use of pain medications. He states that he moved out of the house and been living with his parents but was at the house daily until the children went to bed. He states that Saturday prior to discharging his went out, she left with the man she been having an affair with and she lied to both of them. She stated to the gentleman that her had abandon her in a bar and this gentleman contacted the patient telling him that the patient stated that he had not but that she had left him. Patient states he became more upset and depressed and took an overdose of Vicodin and Xanax and then called a friend who is a recovering substance user who brought him to the hospital. 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 Prior to this he had been working in [place] but was let go from that job after he sustained an injury and had difficulty getting back to work and he decided to quit that job and start this new job. Patient does not endorse a history for prior treatment for depression and states that he is never felt this way in the past. Patient states that he has been taking Adderall 20 mg extended release prescribed by his PCP for what he describes as hyperactivity. Patient states that he was not on it when he was a young child but in the 6 grade was prescribed it after they moved to a different school district. He states that he was an a and B student prior to the 6 grade but once they moved he got in with the wrong crowd his grades dropped, he was placed on Ritalin for several years with no change in his grades and hot out with the wrong crowd. He states he began using alcohol and marijuana and began having problems in school and completing his work. He was asked to leave the 10th grade due to possession of marijuana. Patient does not endorse a history of auditory or visual hallucinations, delusional or paranoid ideation and no manic symptoms. Patient does not endorse ever having been depressed in the past nor having suicidal thoughts and denies any prior suicide attempts. He does not endorse any anxiety symptoms. Patient states he's never been placed on any psychotropic medication is never received any psychiatric treatment. Mental status on Admission: Appearance/Attitude: Patient is casually dressed, makes eye contact and is cooperative Behavior: Patient does not exhibit any psychomotor agitation or retardation Speech/Language: Patient's speech is spontaneous of normal volume and rhythm and he is coherent Thought Process: Patient is goal-directed there is no evidence of loose association or flight of ideas Thought Content: Patient denies any auditory or visual hallucinations and no delusions or paranoid ideation or elicited. Patient states that he has not been sleeping, feeling increasingly tired and unmotivated. Patient states that he has been having difficulties in his marriage began using drugs to try to fit in with his life. Patient states that he feels like a failure and doesn't feel that he's amounted to anything. Patient states his sleep is been disrupted at home and his appetite is fair Suicidal/Homicidal Ideation: Patient denies any current suicidal or homicidal ideation Sensorium/Cognition: Patient is alert and oriented to person, place, and time and his recent and remote memory are grossly intact Mood/Affect: Patient is depressed and his affect is slightly blunted Insight/Judgment: Patient's insight and judgment are fair Hospital Course: Patient was admitted on a voluntary basis, routine observation was ordered as well as group and activity therapy. Patient had routine laboratory studies as well as a medical consultation. Patient was not continued on Adderall as after history taking patient did not have a diagnosis of ADD in grade school. Patient and I discussed the use and side effects of medication to target his symptoms of depression and he was begun on Prozac 10 mg in the morning. Patient was also started on melatonin 3 mg at bedtime to assist with sleep. Patient discussed his marital conflicts and had the cited during the hospital stay to move ahead with the divorce from his . Patient also discussed his use of Xanax and Vicodin on the outside and how he was feeling much better from a physical and mental standpoint since he been in the hospital and not using those drugs. Patient reported that he was no longer feeling suicidal, had more energy in the morning when he awakened and had motivation and interest to do things. He reported he was feeling less depressed, eager to be discharged and will return to live with his parents. Patient reported that he was not having any side effects from the medication. Patient felt that he was ready for discharge. Allergies No Known Allergies Allergy (Verified 05/25/19 18:58) Laboratory Last Values WBC 10.3 k/uL (3.8-10.6) 05/23/19 17:15 RBC 4.62 m/uL (4.30-5.90) 05/23/19 17:15 Hgb 14.2 gm/dL (13.0-17.5) 05/23/19 17:15 Hct 43.2 % (39.0-53.0) 05/23/19 17:15 MCV 93.4 fL (80.0-100.0) 05/23/19 17:15 MCH 30.8 pg (25.0-35.0) 05/23/19 17:15 MCHC 33.0 g/dL (31.0-37.0) 05/23/19 17:15 RDW 14.1 % (11.5-15.5) 05/23/19 17:15 Plt Count 192 k/uL (150-450) 05/23/19 17:15 Neutrophils % 59 % 05/23/19 17:15 Lymphocytes % 32 % 05/23/19 17:15 Monocytes % 5 % 05/23/19 17:15 Eosinophils % 1 % 05/23/19 17:15 Basophils % 0 % 05/23/19 17:15 Neutrophils # 6.1 k/uL (1.3-7.7) 05/23/19 17:15 Lymphocytes # 3.3 k/uL (1.0-4.8) 05/23/19 17:15 Monocytes # 0.6 k/uL (0-1.0) 05/23/19 17:15 Eosinophils # 0.1 k/uL (0-0.7) 05/23/19 17:15 Basophils # 0.0 k/uL (0-0.2) 05/23/19 17:15 PT 10.8 sec (9.0-12.0) 05/23/19 09:05 INR 1.0 (<1.2) 05/23/19 09:05 APTT 22.2 sec (22.0-30.0) 05/23/19 09:05 Sodium 141 mmol/L (137-145) 05/23/19 17:15 Potassium 4.2 mmol/L (3.5-5.1) 05/23/19 17:15 Chloride 109 mmol/L (98-107) H 05/23/19 17:15 Carbon Dioxide 26 mmol/L (22-30) 05/23/19 17:15 Anion Gap 6 mmol/L 05/23/19 17:15 BUN 6 mg/dL (9-20) L 05/23/19 17:15 Creatinine 0.72 mg/dL (0.66-1.25) 05/23/19 17:15 Est GFR (CKD-EPI)AfAm >90 (>60 ml/min/1.73 sqM) 05/23/19 17:15 Est GFR (CKD-EPI)NonAf >90 (>60 ml/min/1.73 sqM) 05/23/19 17:15 Glucose 87 mg/dL (74-99) 05/23/19 17:[address] Glu mg/dL 108 05/23/19 09:05 Hemoglobin A1c 5.4 % (4.0-6.0) 05/23/19 09:05 Calcium 9.3 mg/dL (8.4-10.2) 05/23/19 17:15 Total Bilirubin 0.7 mg/dL (0.2-1.3) 05/23/19 17:15 AST 23 U/L (17-59) 05/23/19 17:15 ALT 26 U/L (21-72) 05/23/19 17:15 Alkaline Phosphatase 51 U/L (38-126) 05/23/19 17:15 Creatine Kinase 77 U/L (55-170) 05/23/19 09:05 Troponin I <0.012 ng/mL (0.000-0.034) 05/23/19 09:05 Total Protein 6.6 g/dL (6.3-8.2) 05/23/19 17:15 Albumin 4.0 g/dL (3.5-5.0) 05/23/19 17:15 Triglycerides 167 mg/dL (<150) H 05/23/19 09:05 Cholesterol 137 mg/dL (<200) 05/23/19 09:05 LDL Cholesterol, Calc 75 mg/dL (0-99) 05/23/19 09:05 HDL Cholesterol 29 mg/dL (40-60) L 05/23/19 09:05 TSH 0.848 mIU/L (0.465-4.680) 05/23/19 09:05 Urine Color Light Yellow 05/23/19 11:54 Urine Appearance Clear (Clear) 05/23/19 11:54 Urine pH 6.5 (5.0-8.0) 05/23/19 11:54 Ur Specific [place] 1.007 (1.001-1.035) 05/23/19 11:54 Urine Protein Negative (Negative) 05/23/19 11:54 Urine Glucose (UA) Negative (Negative) 05/23/19 11:54 Urine Ketones Negative (Negative) 05/23/19 11:54 Urine Blood Negative (Negative) 05/23/19 11:54 Urine Nitrite Negative (Negative) 05/23/19 11:54 Urine Bilirubin Negative (Negative) 05/23/19 11:54 Urine Urobilinogen <2.0 mg/dL (<2.0) 05/23/19 11:54 Ur Leukocyte Esterase Negative (Negative) 05/23/19 11:54 Salicylates <1.0 mg/dL 05/23/19 09:05 Urine Opiates Screen Detected (NotDetected) H 05/23/19 11:54 Ur Oxycodone Screen Not Detected (NotDetected) 05/23/19 11:54 Urine Methadone Screen Not Detected (NotDetected) 05/23/19 11:54 Ur Propoxyphene Screen Not Detected (NotDetected) 05/23/19 11:54 Acetaminophen <10.0 ug/mL 05/23/19 09:05 Ur Barbiturates Screen Not Detected (NotDetected) 05/23/19 11:54 U Tricyclic Antidepress Not Detected (NotDetected) 05/23/19 11:54 Ur Phencyclidine Scrn Not Detected (NotDetected) 05/23/19 11:54 Ur Amphetamines Screen Detected (NotDetected) H 05/23/19 11:54 U Methamphetamines Scrn Not Detected (NotDetected) 05/23/19 11:54 U Benzodiazepines Scrn Detected (NotDetected) H 05/23/19 11:54 Urine Cocaine Screen Not Detected (NotDetected) 05/23/19 11:54 U Marijuana (THC) Screen Detected (NotDetected) H 05/23/19 11:54 Serum Alcohol 11 mg/dL 05/23/19 09:05 Discharge Mental Status: Appearance/Attitude: Patient is neatly and appropriately dressed, makes eye contact and is cooperative Behavior: Patient did not display any psychomotor agitation or retardation Speech/Language: Patient's speech was spontaneous of normal volume and rhythm and he was coherent Thought Process: Patient was goal-directed there is no evidence of loose association or flight of ideas Thought Content: Patient denied any auditory or visual hallucinations no delusions or paranoid ideation were elicited. Patient stated that he was sleeping well and feeling rested in the morning and his energy level had improved. He states that he felt motivated and interested to do things. Patient reported that his appetite was good. He stated that he was feeling better from a physical standpoint as well. Suicidal/Homicidal Ideation: Patient denied any current suicidal or homicidal ideation Sensorium/Cognition: Patient was alert and oriented to person, place, and time and his recent and remote memory were grossly intact. Patient stated his focus and concentration had improved, he was able to read and states that his thinking was much sharper. Mood/Affect: Patient's mood was upbeat and positive and his affect was appro priate to his mood Insight/Judgment: Patient's insight and judgment are intact Risk Assessment: Patient's risk for readmission is low should he continue on medication, follow-up care and avoid alcohol and/or drugs Discharge Plan: Patient will be discharged and will return to live with his parents and continue on Prozac 10 mg in the morning and he was given a prescription for this as well as for melatonin 3 mg at bedtime. Patient was advised to avoid all alcohol and drugs and be compliant with follow-up care and medications. Patient Condition at Discharge: Stable Plan - Discharge Summary Discharge Rx Participant: No New Discharge Prescriptions: New Melatonin 3 mg PO HS #28 tablet FLUoxetine HCL [PROzac] 10 mg PO DAILY #14 cap Discontinued Dextroamphetamine/Amphetamine [Adderall Xr] 20 mg PO DAILY Discharge Medication List FLUoxetine HCL [PROzac] 10 mg PO DAILY #14 cap 05/29/19 [Rx] Melatonin 3 mg PO HS #28 tablet 05/29/19 [Rx] Follow up Appointment(s)/Referral(s): [facility] [Outside] - 06/01/19 10:00 am (Mary Staples ) Christian Sorto MD [Primary Care Provider] - 1-2 days Patient Instructions/Handouts: How to Stop Smoking (DC), Depression (DC) Activity/Diet/Wound Care/Special Instructions: Activity and diet as tolerated. Avoid the use of street drugs and alcohol. Remove all firearms from the home. Take all medications as prescribed. Follow up with your Primary Care Physician in one to two days. When you are in need of refills on your medications please contact your medical provider and/or your outpatient psychiatrist to have this done. Please go to the scheduled outpatient appointment for aftercare. If symptoms return or become worse call the crisis line and/ or go the nearest emergency room for an evaluation. l Discharge Disposition: HOME SELF-CARE
[2019-05-29] MEDS: NICOTINE 21MG/24HR PATCH TRANSDERM SCH (09:00)
== END 2019-05-29 12:57 | disposition home or self-care (01) | DRG 918 ==
LOC: EC 08:29 → 3MHU 05-25 18:04
PROVIDERS: ADMIT Psychiatry & Neurology Psychiatry; ATTEND Psychiatry & Neurology Psychiatry
DX: T42.4X2A Poisoning by benzodiazepines, intentional self-harm, initial encounter (principal); R45.851 Suicidal ideations; F32.1 Major depressive disorder, single episode, moderate; T40.2X2A Poisoning by other opioids, intentional self-harm, initial encounter; F17.200 Nicotine dependence, unspecified, uncomplicated; F90.9 Attention-deficit hyperactivity disorder, unspecified type; Z79.899 Other long term (current) drug therapy; Z72.89 Other problems related to lifestyle; Z63.5 Disruption of family by separation and divorce; Z56.0 Unemployment, unspecified
CPT/HCPCS: 36415; 80053; 80061; 80306; 80320; 80329; 81003; 82550; 83036; 83520; 84443; 84484; 85025; 85610; 85730; 96360; 96361; 99285

== ENCOUNTER 2019-09-04 06:17 | Emergency (ER) | payer OTHER ==
[2019-09-04] MEDS ORDERED: BUTALB/APAP/CAFF 50-325-40MG TAB PO STA (06:33)
[2019-09-04] MEDS ORDERED: METOCLOPRAMIDE 10 MG TAB PO STA (06:34)
[2019-09-04] MEDS ORDERED: diphenhydrAMINE 50 MG CAP PO STA (06:34)
--- NOTE | 2019-09-04 06:59 | ED ---
Headache HPI - General Chief Complaint: Headache Stated Complaint: Headache Time Seen by Provider: 09/04/19 06:27 Source: patient, RN notes reviewed Mode of arrival: ambulatory Limitations: no limitations - History of Present Illness Initial Comments: This a 34-year-old male presents emergency Department chief complaint headache 2 days. Patient states that this headache is different from his usual headache. Patient states saw his primary care physician yesterday who is recommended them to continue taking [id number] medications. Patient sta shawn that it helps somewhat does not completely alleviate symptoms. Patient states they discussed doing a CAT scans if the symptoms did not improve. Patient states that he cannot wait to follow-up sooner presented to the emergency room. He states that he cannot tolerate going to work because of lites were too bright. Patient denies any focal weakness denies chest pain, dizziness, shortness breath, vomiting. Patient does admit that he has some photophobia. Patient states that he had some mild nausea. Patient has known drug ALLERGIES. - Related Data Home Medications Medication Instructions Recorded Confirmed clonazePAM [KlonoPIN] 0.25 mg PO DAILY 09/04/19 09/04/19 Previous Rx's Medication Instructions Recorded Butalb/APAP/Caff 50-325-40Mg 1 tab PO Q4H PRN #10 tablet 09/04/19 [Fioricet 50-325-40] Allergies Allergy/AdvReac Type Severity Reaction Status Date / Time No Known Allergies Allergy Verified 05/25/19 18:58 Review of Systems ROS Statement: Those systems with pertinent positive or pertinent negative responses have been documented in the HPI. ROS Other: All systems not noted in ROS Statement are negative. Past Medical History Past Medical History: No Reported History History of Any Multi-Drug Resistant Organisms: None Reported Past Surgical History: Orthopedic Surgery Additional Past Surgical History / Comment(s): Sugery on right 5th metatarsal Past Anesthesia/Blood Transfusion Reactions: No Reported Reaction Past Psychological History: No Psychological Hx Reported Smoking Status: Current every day smoker Past Alcohol Use History: Rare Past Drug Use History: Marijuana, Prescription Drug Abuse General Exam Limitations: no limitations General appearance: alert, in no apparent distress Head exam: Present: atraumatic, normocephalic, normal inspection Eye exam: Present: normal appearance, PERRL, EOMI. Absent: scleral icterus, con junctival injection, periorbital swelling ENT exam: Present: normal exam, normal oropharynx, mucous membranes moist, TM's normal bilaterally, normal external ear exam Neck exam: Present: normal inspection, full ROM. Absent: tenderness, meningismus, lymphadenopathy Respiratory exam: Present: normal lung sounds bilaterally. Absent: respiratory distress, wheezes, rales, rhonchi, stridor Cardiovascular Exam: Present: regular rate, normal rhythm, normal heart sounds. Absent: systolic murmur, diastolic murmur, rubs, gallop, clicks Extremities exam: Present: normal inspection, full ROM, normal capillary refill. Absent: tenderness, pedal edema, joint swelling, calf tenderness Neurological exam: Present: alert, oriented X3, CN II-XII intact, reflexes normal, other (Finger to nose intact bilaterally without over shooting). Absent: motor sensory deficit Skin exam: Present: warm, dry, intact, normal color. Absent: rash Course Vital Signs 09/04/19 06:20 Temperature 98.5 F Pulse Rate 73 Respiratory 20 Rate Blood Pressure 141/90 O2 Sat by Pulse 99 Oximetry Medical Decision Making - Medical Decision Making CT was unremarkable and was obtained secondary to ongoing symptoms and recommendation from PCP. Patient's was given medications emergency room he did have some improvement I did offer shot of Toradol and patient refuses. Patient advised follow-up with PCP return for any worsening symptoms. Disposition Clinical Impression: Migraine headache Disposition: HOME SELF-CARE Condition: Stable Instructions (If sedation given, give patient instructions): Acute Headache (ED) Additional Instructions: Please return to the Emergency Department if symptoms worsen or any other concerns. Prescriptions: Butalb/APAP/Caff 50-325-40Mg [Fioricet 50-325-40] 1 tab PO Q4H PRN #10 tablet PRN Reason: Headache Is patient prescribed a controlled substance at d/c from ED?: No Referrals: Christian Sorto MD [Primary Care Provider] - 1-2 days Time of Disposition: 07:39
--- NOTE | 2019-09-04 07:31 | CT ---
EXAMINATION TYPE: CT brain wo con DATE OF EXAM: 09/04/2019 COMPARISON: NONE HISTORY: Headache CT DLP: 1052.4 mGycm. Automated Exposure Control for Dose Reduction was Utilized. TECHNIQUE: CT scan of the head is performed without contrast. FINDINGS: There is no acute intracranial hemorrhage, mass effect, or midline shift identified. No s uspicious extra-axial fluid collection. The ventricles and sulci are within normal limits in size. The globes are intact and the visualized sinuses are clear. IMPRESSION: No acute intracranial hemorrhage, mass effect, or midline shift is seen.
[2019-09-04] MEDS ORDERED: IBUPROFEN 600 MG TAB PO STA (07:38)
[2019-09-04 07:58] VITALS: BP 120/79; PULSE 66; RESP 16; TEMP 97.9
== END 2019-09-04 07:50 | disposition home or self-care (01) ==
LOC: EC 06:17
DX: G43.909 Migraine, unspecified, not intractable, without status migrainosus (principal); F17.200 Nicotine dependence, unspecified, uncomplicated; Z79.899 Other long term (current) drug therapy
CPT/HCPCS: 70450; 99284

== ENCOUNTER 2019-12-16 16:11 | Emergency (ER) | payer OTHER ==
[2019-12-16 16:23] VITALS: BP 120/72; PULSE 64; RESP 16; TEMP 97.9
[2019-12-16] MEDS ORDERED: traMADol 50 MG STARTER PACK 3 TAB BTL PO STA (16:58)
--- NOTE | 2019-12-16 16:58 | XR ---
EXAMINATION TYPE: XR finger LT DATE OF EXAM: 12/16/2019 COMPARISON: None HISTORY: Fourth digit swelling TECHNIQUE: 3 views left ring finger FINDINGS: There is diffuse soft tissue swelling over the ring finger. The osseous structures are inta ct. Joint spaces are preserved. In the lateral projection more focal soft tissue swelling is dorsal to the distal middle phalanx and proximal distal phalanx. IMPRESSION: 1. Soft tissue swelling distal dorsal left ring finger. 2. Normal osseous structures as visualized.
--- NOTE | 2019-12-16 16:58 | ED ---
Extremity Problem HPI - General Chief complaint: Extremity Problem,Nontraumatic Stated complaint: left hand injury Time Seen by Provider: 12/16/19 16:36 Source: patient, RN notes reviewed Mode of arrival: ambulatory Limitations: no limitations - History of Present Illness Initial comments: 34-year-old male presents emergency Department chief complaint of swelling of his left hand fourth digit. Patient states that he bites his nails, bites at his fingers. Patient states that he is a large amount swelling which is actually improved after it ruptured. Patient states his full range of motion there is mild discomfort at this time. Patient offers no other complaints. - Related Data Home Medications Medication Instructions Recorded Confirmed clonazePAM [KlonoPIN] 0.25 mg PO DAILY 09/04/19 09/04/19 Previous Rx's Medication Instructions Recorded Butalb/APAP/Caff 50-325-40Mg 1 tab PO Q4H PRN #10 tablet 09/04/19 [Fioricet 50-325-40] Cephalexin [Keflex] 500 mg PO Q6HR #40 cap 12/16/19 Allergies Allergy/AdvReac Type Severity Reaction Status Date / Time No Known Allergies Allergy Verified 12/16/19 16:23 Review of Systems ROS Statement: Those systems with pertinent positive or pertinent negative responses have been documented in the HPI. ROS Other: All systems not noted in ROS Statement are negative. Past Medical History Past Medical History: No Reported History History of Any Multi-Drug Resistant Organisms: None Reported Past Surgical History: Orthopedic Surgery Additional Past Surgical History / Comment(s): Sugery on right 5th metatarsal Past Anesthesia/Blood Transfusion Reactions: No Reported Reaction Past Psychological History: Anxiety Smoking Status: Current every day smoker Past Alcohol Use History: Rare Past Drug Use History: Marijuana, Prescription Drug Abuse General Exam Limitations: no limitations General appearance: alert, in no apparent distress Head exam: Present: atraumatic, normocephalic, normal inspection Eye exam: Present: normal appearance, PERRL, EOMI. Absent: scleral icterus, conjunctival injection, periorbital swelling ENT exam: Present: normal exam, normal oropharynx, mucous membranes moist Respiratory exam: Present: normal lung sounds bilaterally. Absent: respiratory distress, wheezes, rales, rhonchi, stridor Cardiovascular Exam: Present: regular rate, normal rhythm, normal heart sounds. Absent: systolic murmur, diastolic murmur, rubs, gallop, clicks Extremities exam: Present: other (Left hand fourth digit there is some erythema noted at the nail fold, mild swelling full range of motion neurovascular intact there is some mild drainage noted) Course Vital Signs 12/16/19 16:19 Temperature 97.9 F Pulse Rate 64 Respiratory 16 Rate Blood Pressure 120/72 O2 Sat by Pulse 99 Oximetry Medical Decision Making - Medical Decision Making x-rays negative for acute evidence of osteomyelitis patient was placed on Keflex we did discuss warm compresses return parameters discussed. Disposition Clinical Impression: Acute paronychia of finger of left hand Disposition: HOME SELF-CARE Condition: Stable Instructions (If sedation given, give patient instructions): Paronychia (ED) Additional Instructions: Please return to the Emergency Department if symptoms worsen or any other concerns. Prescriptions: Cephalexin [Keflex] 500 mg PO Q6HR #40 cap Is patient prescribed a controlled substance at d/c from ED?: No Referrals: Christian Sorto MD [Primary Care Provider] - 1-2 days Time of Disposition: 16:58
== END 2019-12-16 17:11 | disposition home or self-care (01) ==
LOC: EC 16:11
DX: L03.012 Cellulitis of left finger (principal); F41.9 Anxiety disorder, unspecified; F17.200 Nicotine dependence, unspecified, uncomplicated; Z79.899 Other long term (current) drug therapy; Z98.890 Other specified postprocedural states
CPT/HCPCS: 99283

== ENCOUNTER 2020-01-02 19:06 | Emergency (ER) | payer OTHER ==
[2020-01-02 19:09] VITALS: RESP 16
[2020-01-02] MEDS ORDERED: diphenhydrAMINE 50 MG/ML 1 ML VIAL IVP STA (19:15)
[2020-01-02] MEDS ORDERED: SODIUM CHLORIDE 0.9% 1,000 ML IV STA (19:15)
[2020-01-02] MEDS ORDERED: METOCLOPRAMIDE 5 MG/ML 2 ML VIAL IVP STA (19:15)
[2020-01-02] MEDS ORDERED: KETOROLAC 30 MG/ML 1 ML VIAL IVP STA (19:16)
--- NOTE | 2020-01-02 19:21 | ED ---
General Adult HPI - General Chief complaint: Nausea/Vomiting/Diarrhea Stated complaint: NVD/Dizzy Time Seen by Provider: 01/02/20 19:12 Source: patient Mode of arrival: ambulatory Limitations: no limitations - History of Present Illness Initial comments: Patient presents the ED complaining of having multiple episodes of vomiting and diarrhea since about 9 AM this morning. Patient also states that he has had an intermittent headache for the past 2 days, which she states is not unusual for him. Patient states that he's had similar headaches in the past. Patient denies known sick contact or recent travel abroad. Patient denies trauma or injury, sudden onset of headache, LOC, neck pain or stiffness, fever, focal numbness/weakness/neuro deficit, visual changes, speech difficulty, chest pain, dyspnea, dizziness, abdominal pain, constipation, bloody or melanotic stool, hematemesis, dysuria or urinary symptoms, or any other symptoms or complaints. - Related Data Home Medications Medication Instructions Recorded Confirmed clonazePAM [KlonoPIN] 0.25 mg PO DAILY 09/04/19 09/04/19 Previous Rx's Medication Instructions Recorded Butalb/APAP/Caff 50-325-40Mg 1 tab PO Q4H PRN #10 tablet 09/04/19 [Fioricet 50-325-40] Cephalexin [Keflex] 500 mg PO Q6HR #40 cap 12/16/19 Ondansetron Odt [Zofran Odt] 4 mg PO Q8HR PRN #10 tab 01/02/20 Allergies Allergy/AdvReac Type Severity Reaction Status Date / Time No Known Allergies Allergy Verified 01/02/20 19:09 Review of Systems ROS Statement: Those systems with pertinent positive or pertinent negative responses have been documented in the HPI. ROS Other: All systems not noted in ROS Statement are negative. Past Medical History Past Medical History: No Reported History History of Any Multi-Drug Resistant Organisms: None Reported Past Surgical History: Orthopedic Surgery Additional Past Surgical History / Comment(s): Sugery on right 5th metatarsal Past Anesthesia/Blood Transfusion Reactions: No Reported Reaction Past Psychological History: Anxiety Smoking Status: Current every day smoker Past Alcohol Use History: Rare Past Drug Use History: Marijuana, Prescription Drug Abuse General Exam Limitations: no limitations General appearance: alert, in no apparent distress Head exam: Present: atraumatic, normocephalic Eye exam: Present: normal appearance, PERRL, EOMI ENT exam: Present: normal oropharynx, mucous membranes moist Neck exam: Present: other (Trachea is in midline). Absent: tenderness, meningismus Respiratory exam: Present: normal lung sounds bilaterally. Absent: respiratory distress, wheezes, rales, rhonchi Cardiovascular Exam: Present: regular rate, normal rhythm, normal heart sounds, other (Normal radial pulses bilaterally) GI/Abdominal exam: Present: soft, normal bowel sounds. Absent: distended, tenderness, guarding Extremities exam: Present: full ROM. Absent: tenderness, pedal edema, calf tenderness Neurological exam: Present: alert, oriented X3, CN II-XII intact. Absent: motor sensory deficit Psychiatric exam: Present: normal affect, normal mood Skin exam: Present: warm, dry, intact, normal color Course Vital Signs 01/02/20 19:07 Temperature 100 F H Pulse Rate 89 Respiratory 16 Rate Blood Pressure 122/87 O2 Sat by Pulse 99 Oximetry - Reevaluation(s) Reevaluation #1: 01/02/20 20:23 Patient states that his headache and nausea have improved with ED treatment, and he denies development of any new symptoms while in the ED. Patient remains alert and breathing comfortably. Patient's abdomen remains soft and nontender on exam. Patient has not any vomiting or diarrhea while in the ED. Patient is aware of his test results, and he feels comfortable going home at this time. Medical Decision Making - Medical Decision Making Patient's abdomen is soft and nontender on exam. Patient has a normal neurological exam. Patient has no nuchal rigidity. Patient reports having similar headaches in the past, and I do not think that his headache today is from a serious or emergent medical condition. I suspect the patient's vomiting and diarrhea are likely secondary to viral gastroenteritis. Patient was hydrated with IV fluids in the ED, and he states that he feels much better now. Other than leukocytosis, the patient's labs are fairly unremarkable. Will discharge patient home at this time. Patient was counseled about headaches and vomiting/diarrhea/gastroenteritis. Patient was given instructions to drink plenty of water/fluids to stay hydrated. Patient was clearly explained return and follow-up instructions. Patient was instructed to return to the ED should he develop new or worsening pain, persistent or bloody vomiting/diarrhea, numbness or weakness, a fever, neck stiffness, shortness of breath, feeling dizzy or faint, or near worsening symptoms. Patient was instructed to follow up closely with his primary care provider. Patient feels comfortable with this plan. - Lab Data Result diagrams: 01/02/20 19:36 01/02/20 19:36 Lab Results 01/02/20 01/02/20 01/02/20 Range/Units 19:36 19:36 19:36 WBC 18.0 H (3.8-10.6) k/uL RBC 5.81 (4.30-5.90) m/uL Hgb 18.1 H (13.0-17.5) gm/dL Hct 52.9 (39.0-53.0) % MCV 91.1 (80.0-100.0) fL MCH 31.2 (25.0-35.0) pg MCHC 34.2 (31.0-37.0) g/dL RDW 11.7 (11.5-15.5) % Plt Count 204 (150-450) k/uL Neutrophils % 92 % Lymphocytes % 4 % Monocytes % 2 % Eosinophils % 1 % Basophils % 0 % Neutrophils # 16.6 H (1.3-7.7) k/uL Lymphocytes # 0.8 L (1.0-4.8) k/uL Monocytes # 0.3 (0-1.0) k/uL Eosinophils # 0.3 (0-0.7) k/uL Basophils # 0.0 (0-0.2) k/uL Sodium 138 (137-145) mmol/L Potassium 4.6 (3.5-5.1) mmol/L Chloride 103 (98-107) mmol/L Carbon Dioxide 24 (22-30) mmol/L Anion Gap 11 mmol/L BUN 14 (9-20) mg/dL Creatinine 0.99 (0.66-1.25) mg/dL Est GFR (CKD-EPI)AfAm >90 (>60 ml/min/1.73 sqM) Est GFR (CKD-EPI)NonAf >90 (>60 ml/min/1.73 sqM) Glucose 100 H (74-99) mg/dL Calcium 10.0 (8.4-10.2) mg/dL Total Bilirubin 1.1 (0.2-1.3) mg/dL AST 33 (17-59) U/L ALT 32 (4-49) U/L Alkaline Phosphatase 76 (38-126) U/L Total Protein 8.4 H (6.3-8.2) g/dL Albumin 5.1 H (3.5-5.0) g/dL Lipase 105 (23-300) U/L Influenza Type A RNA Not Detected (Not Detectd) Influenza Type B (PCR) Not Detected (Not Detectd) Disposition Clinical Impression: Headache, Vomiting, Diarrhea Disposition: HOME SELF-CARE Condition: Stable Instructions (If sedation given, give patient instructions): Tension Headache (ED), Acute Nausea and Vomiting (ED), Acute Diarrhea (ED) Additional Instructions: Return to the ER immediately should you develop new or worsening pain, persistent or bloody vomiting/diarrhea, numbness or weakness, a fever, neck stiffness, shortness of breath, feeling dizzy or faint, or new or worsening symptoms. Follow up closely with your primary care provider. Prescriptions: Ondansetron Odt [Zofran Odt] 4 mg PO Q8HR PRN #10 tab PRN Reason: Nausea Is patient prescribed a controlled substance at d/c from ED?: No Referrals: Christian Sorto MD [Primary Care Provider] - 1-2 days Time of Disposition: 20:26
[2020-01-02 19:54] LABS: Basophils % (A) 0 %; Eosinophils # (A) 0.3 k/uL (0-0.7); Eosinophils % (A) 1 %; HCT 52.9 % (39.0-53.0); HGB 18.1 gm/dL (13.0-17.5); Lymphocytes # (A) 0.8 k/uL (1.0-4.8); Lymphocytes % (A) 4 %; MCH 31.2 pg (25.0-35.0); MCHC 34.2 g/dL (31.0-37.0); MCV 91.1 fL (80.0-100.0); Mean Platelet Volume 9.7; Monocytes # (A) 0.3 k/uL (0-1.0); Monocytes % (A) 2 %; Neutrophils # (A) 16.6 k/uL (1.3-7.7); Neutrophils % (A) 92 %; Platelet Count 204 k/uL (150-450); RBC 5.81 m/uL (4.30-5.90); RDW 11.7 % (11.5-15.5)
[2020-01-02 20:02] LABS: ALT 32 U/L (4-49); AST 33 U/L (17-59); African American GFR (CKD) >90 (>60 ml/min/1.73 sqM); Albumin 5.1 g/dL (3.5-5.0); Alkaline Phosphatase 76 U/L (38-126); Anion Gap 11 mmol/L; Blood Urea Nitrogen 14 mg/dL (9-20); Carbon Dioxide 24 mmol/L (22-30); Chloride 103 mmol/L (98-107); Glucose 100 mg/dL (74-99); Non-African American GFR(CKD) >90 (>60 ml/min/1.73 sqM); Potassium 4.6 mmol/L (3.5-5.1); Sodium 138 mmol/L (137-145); Total Bilirubin 1.1 mg/dL (0.2-1.3); Total Protein 8.4 g/dL (6.3-8.2)
[2020-01-02 20:36] VITALS: TEMP 99.3
[2020-01-02 20:44] VITALS: BP 120/83; PULSE 82
== END 2020-01-02 20:44 | disposition home or self-care (01) ==
LOC: EC 19:06
DX: R11.10 Vomiting, unspecified (principal); R19.7 Diarrhea, unspecified; R51 Headache; R42 Dizziness and giddiness; F41.9 Anxiety disorder, unspecified; F17.200 Nicotine dependence, unspecified, uncomplicated; Z79.899 Other long term (current) drug therapy
CPT/HCPCS: 36415; 80053; 83690; 85025; 87502; 99284; 96374; 96375 ×2; 96361; J1200; J2765; J1885

== ENCOUNTER 2020-09-13 17:58 | Emergency (ER) | payer OTHER ==
[2020-09-13 18:09] VITALS: TEMP 98.9
--- NOTE | 2020-09-13 18:40 | XR ---
EXAMINATION TYPE: XR chest 2V DATE OF EXAM: 09/13/2020 COMPARISON: 03/06/2018 HISTORY: Chest pain TECHNIQUE: FINDINGS: Heart and mediastinum are normal. Lungs are clear. Diaphragm is normal. Bony thorax appears normal. IMPRESSION: Normal chest. No change.
--- NOTE | 2020-09-13 18:42 | XR ---
EXAMINATION TYPE: XR shoulder complete RT DATE OF EXAM: 09/13/2020 COMPARISON: NONE HISTORY: Pain TECHNIQUE: 3 views FINDINGS: There is fracture of the mid shaft of the clavicle with 13 mm anterior displacement of the lateral fragment. The glenohumeral joint is intact. The AC joint is intact. There is some overriding of the fragments. IMPRESSION: Displaced mid shaft fracture of the clavicle with overriding of the fragments.
--- NOTE | 2020-09-13 18:51 | XR ---
EXAMINATION TYPE: XR elbow limited RT DATE OF EXAM: 09/13/2020 COMPARISON: NONE HISTORY: Pain TECHNIQUE: 2 views FINDINGS: I see no fracture nor dislocation. Elbow joint spaces are normal. There is no sign of joint effusion. IMPRESSION: Negative right elbow exam.
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
[2020-09-13] MEDS ORDERED: LIDOCAINE 2% INJ 20 MG/ML (20 ML MDV) SQ ONE (19:45)
[2020-09-13] MEDS ORDERED: HYDROmorphone 0.5 MG/0.5 ML SYRINGE IVP STA (19:54)
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
[2020-09-13 20:40] VITALS: BP 135/89; PULSE 801; RESP 8
== END 2020-09-13 20:25 | disposition home or self-care (01) ==
LOC: EC 17:58
DX: S42.001A Fracture of unspecified part of right clavicle, initial encounter for closed fracture (principal); S01.81XA Laceration without foreign body of other part of head, initial encounter; F41.9 Anxiety disorder, unspecified; F17.200 Nicotine dependence, unspecified, uncomplicated; Z79.899 Other long term (current) drug therapy; Y04.0XXA Assault by unarmed brawl or fight, initial encounter; Y92.89 Other specified places as the place of occurrence of the external cause
CPT/HCPCS: 73030; 73070; 71046; 72125; 70450; 99284; 96374; 12011; J2001; J1170

== ENCOUNTER 2022-07-14 01:52 | Emergency (ER) | payer OTHER ==
[2022-07-14 02:12] VITALS: BP 108/65; PULSE 85; RESP 22; TEMP 97.7
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
== END 2022-07-14 03:14 | disposition home or self-care (01) ==
LOC: EC 01:52
DX: R55 Syncope and collapse (principal); T74.11XA Adult physical abuse, confirmed, initial encounter; F17.200 Nicotine dependence, unspecified, uncomplicated; Y04.8XXA Assault by other bodily force, initial encounter
CPT/HCPCS: 70450; 72125; 99285

== ENCOUNTER 2022-08-14 00:56 | Emergency (ER) | payer OTHER ==
[2022-08-14] MEDS ORDERED: ACET/COD 300 MG/30 MG STARTER PACK 6 TAB BTL PO STA (02:21)
[2022-08-14] MEDS ORDERED: KETOROLAC 15 MG/ML 1 ML VIAL IVP STA (02:21)
[2022-08-14] MEDS ORDERED: PENICILLIN VK 500MG STARTER 4 TAB BTL PO STA (02:22)
--- NOTE | 2022-08-14 02:29 | ED ---
ENT HPI - General Chief complaint: Dental/Oral Stated complaint: dental pain Time Seen by Provider: 08/14/22 02:17 Source: patient, RN notes reviewed Mode of arrival: ambulatory - History of Present Illness Initial comments: This is a 37-year-old male with a history of poor dentition. He presents with pain to left upper canine tooth. Patient has multiple dental caries and chronic dental problems. Patient states he has quit smoking cigarettes. Denies any sore throat. No ear pain. No eye pain. No difficulty swallowing. No immunosuppression or diabetes No headache, no fever or chills, no changes in vision or hearing, no sore throat or difficulty with speech, no neck pain, no chest pain or shortness of breath, no abdominal pain, no nausea or vomiting, no changes in urination or bowel movements, no numbness or tingling, no extremity pain, no skin rashes or lesions. Past medical, surgical, social, and family history reviewed. - Related Data Home Medications Medication Instructions Recorded Confirmed clonazePAM [KlonoPIN] 0.25 mg PO DAILY 09/04/19 09/04/19 Previous Rx's Medication Instructions Recorded Butalb/APAP/Caff 50-325-40Mg 1 tab PO Q4H PRN #10 tablet 09/04/19 [Fioricet 50-325-40] Cephalexin [Keflex] 500 mg PO Q6HR #40 cap 12/16/19 Ondansetron Odt [Zofran Odt] 4 mg PO Q8HR PRN #10 tab 01/02/20 HYDROcodone/APAP 5-325MG [[place] 1 tab PO Q6HR PRN 3 Days #12 tab 09/13/20 5-325] Penicillin V Potassium [Pen Vee K] 500 mg PO QID #36 tablet 08/14/22 Allergies Allergy/AdvReac Type Severity Reaction Status Date / Time No Known Allergies Allergy Verified 08/14/22 01:26 Review of Systems ROS Statement: Those systems with pertinent positive or pertinent negative responses have been documented in the HPI. ROS Other: All systems not noted in ROS Statement are negative. Past Medical History Past Medical History: No Reported History History of Any Multi-Drug Resistant Organisms: None Reported Past Surgical History: Orthopedic Surgery Additional Past Surgical History / Comment(s): Sugery on right 5th metatarsal Past Anesthesia/Blood Transfusion Reactions: No Reported Reaction Past Psychological History: Anxiety Smoking Status: Current every day smoker Past Alcohol Use History: Occasional Past Drug Use History: Marijuana, Prescription Drug Abuse General Exam General appearance: alert, in no apparent distress Head exam: Present: atraumatic, normocephalic, normal inspection Eye exam: Present: normal appearance, PERRL, EOMI. Absent: scleral icterus, conjunctival injection, periorbital swelling ENT exam: Present: normal exam, mucous membranes dry, mucous membranes moist, normal external ear exam Expanded Ear exam: Present: normal external inspection Mouth exam: Present: normal external inspection. Absent: drooling, trismus, muffled voice, tongue normal, tongue elevation Teeth exam: Present: dental caries, dental tenderness # (Tooth #12), gingival enlargement, other (Patient has extensive dental carry formation to multiple teeth eroded into the pulp) Throat exam: negative: tonsillar erythema, tonsillomegaly, R peritonsillar mass, L peritonsillar mass Neck exam: Present: normal inspection, full ROM. Absent: tenderness, meningismus, lymphadenopathy Respiratory exam: Present: normal lung sounds bilaterally. Absent: respiratory distress, wheezes, rales, rhonchi, stridor, chest wall tenderness, accessory muscle use Cardiovascular Exam: Present: regular rate, normal rhythm, normal heart sounds. Absent: systolic murmur, diastolic murmur, rubs, gallop, clicks GI/Abdominal exam: Present: soft, normal bowel sounds. Absent: distended, tenderness, guarding, rebound, rigid Extremities exam: Present: normal inspection, full ROM, normal capillary refill. Absent: tenderness, pedal edema, joint swelling, calf tenderness Back exam: Present: normal inspection Neurological exam: Present: alert, oriented X3, CN II-XII intact Psychiatric exam: Present: normal affect, normal mood Skin exam: Present: warm, dry, intact, normal color. Absent: rash Course Vital Signs 08/14/22 01:23 Temperature 97.8 F Pulse Rate 76 Respiratory 18 Rate Blood Pressure 161/92 O2 Sat by Pulse 100 Oximetry Medical Decision Making - Medical Decision Making Patient with recurrence of chronic dental pain. Appears that the patient could have an early infection to tooth #12. We'll cover with Mary العراقي Patient given ketorolac here. Starter pack of Tylenol with codeine. Blood pressure was also elevated. Discussed this with the patient. Patient needs to see a dentist as soon as possible. Discussed follow-up with the patient. All questions answered Patient was told to return to the ER for any signs or symptoms worsen. Told to return immediately if any other problems arise. All questions answered. Treatment plan discussed. Patient in agreement Every effort has been made to ensure accuracy of this dictation. However, due to the limitations of electronic medical records and dictation devices, errors in charting still occur. Manager Vehicle Dr. Corado Disposition Clinical Impression: Pain due to dental caries, Elevated blood pressure reading Disposition: HOME SELF-CARE Condition: Good Instructions (If sedation given, give patient instructions): Toothache (ED), Hypertension (ED) Additional Instructions: Make a dental appointment [facility] to have your teeth reevaluated. He of multiple cavities which need to be addressed. Take antibiotics as directed. Refrain from smoking cigarettes. Refrain from concentrated sugars. Follow-up with your regular physician as directed. Return to the ER immediately if any symptoms worsen, new symptoms arise, or any other problems develop. Is patient prescribed a controlled substance at d/c from ED?: No Referrals: None,Stated [Primary Care Provider] - 1-2 days Time of Disposition: 02:25 Decision to Admit Reason: Admit from EC
[2022-08-14 03:00] VITALS: BP 138/79; PULSE 98; RESP 16; TEMP 98.4
== END 2022-08-14 03:02 | disposition home or self-care (01) ==
LOC: EC 00:56
DX: K02.9 Dental caries, unspecified (principal); R03.0 Elevated blood-pressure reading, without diagnosis of hypertension; F41.9 Anxiety disorder, unspecified; F17.200 Nicotine dependence, unspecified, uncomplicated; F12.90 Cannabis use, unspecified, uncomplicated; Z79.899 Other long term (current) drug therapy
CPT/HCPCS: 99282; 96374; J1885

== ENCOUNTER 2023-01-16 15:55 | Emergency (ER) | payer OTHER ==
[2023-01-16] MEDS ORDERED: IBUPROFEN 600 MG TAB PO STA (16:49)
--- NOTE | 2023-01-16 16:50 | ED ---
ENT HPI - General Chief complaint: ENT Stated complaint: mouth/face swelling pain Time Seen by Provider: 01/16/23 16:49 Source: patient, RN notes reviewed Mode of arrival: ambulatory Limitations: no limitations - History of Present Illness Initial comments: 37-year-old male presents emergency Department chief complaint of left-sided dental, facial swelling. Patient states started 3 days ago. Patient states she's had history dental infections. No fevers or chills she states she has a sore inside of his mouth. He does have history of drug abuse. Patient offers no associated symptoms. - Related Data Home Medications Medication Instructions Recorded Confirmed clonazePAM [KlonoPIN] 0.25 mg PO DAILY 09/04/19 09/04/19 Previous Rx's Medication Instructions Recorded Butalb/APAP/Caff 50-325-40Mg 1 tab PO Q4H PRN #10 tablet 09/04/19 [Fioricet 50-325-40] Cephalexin [Keflex] 500 mg PO Q6HR #40 cap 12/16/19 Ondansetron Odt [Zofran Odt] 4 mg PO Q8HR PRN #10 tab 01/02/20 HYDROcodone/APAP 5-325MG [[place] 1 tab PO Q6HR PRN 3 Days #12 tab 09/13/20 5-325] Penicillin V Potassium [Pen Vee K] 500 mg PO QID #36 tablet 08/14/22 Amoxic-Pot Clav 875-125Mg 1 tab PO Q12HR #20 tab 01/16/23 [Augmentin 875-125] Ibuprofen [Motrin] 600 mg PO Q8HR PRN #20 tab 01/16/23 Allergies Allergy/AdvReac Type Severity Reaction Status Date / Time No Known Allergies Allergy Verified 01/16/23 16:49 Review of Systems ROS Statement: Those systems with pertinent positive or pertinent negative responses have been documented in the HPI. ROS Other: All systems not noted in ROS Statement are negative. Past Medical History Past Medical History: No Reported History History of Any Multi-Drug Resistant Organisms: None Reported Past Surgical History: Orthopedic Surgery Additional Past Surgical History / Comment(s): Sugery on right 5th metatarsal Past Anesthesia/Blood Transfusion Reactions: No Reported Reaction Past Psychological History: Anxiety Smoking Status: Current every day smoker Past Alcohol Use History: Occasional Past Drug Use History: Marijuana, Prescription Drug Abuse General Exam Limitations: no limitations General appearance: alert, in no apparent distress Head exam: Present: atraumatic, normocephalic, normal inspection Eye exam: Present: normal appearance, PERRL, EOMI. Absent: scleral icterus, conjunctival injection, periorbital swelling ENT exam: Present: mucous membranes moist, TM's normal bilaterally, normal external ear exam. Absent: normal oropharynx (Dental caries, dental erosion and erythematous gums noted) Neck exam: Present: normal inspection, full ROM. Absent: tenderness, meningismus, lymphadenopathy Respiratory exam: Present: normal lung sounds bilaterally. Absent: respiratory distress, wheezes, rales, rhonchi, stridor Cardiovascular Exam: Present: regular rate, normal rhythm, normal heart sounds. Absent: systolic murmur, diastolic murmur, rubs, gallop, clicks Course Vital Signs 01/16/23 01/16/23 16:46 17:12 Temperature 99.0 F 99.1 F Pulse Rate 73 82 Respiratory 20 16 Rate Blood Pressure 167/96 157/97 O2 Sat by Pulse 100 99 Oximetry Medical Decision Making - Medical Decision Making Was pt. sent in by a medical professional or institution (, PA, STATISTICAL PROGRAMMER ANALYST, urgent care, hospital, or usp...) When possible be specific @ -No Did you speak to anyone other than the patient for history (EMS, parent, family, police, friend...)? What history was obtained from this source @ -No Did you review nursing and triage notes (agree or disagree)? Why? @ -I reviewed and agree with nursing and triage notes Were old charts reviewed (outside hosp., previous admission, EMS record, old EKG, old radiological studies, urgent care reports/EKG's, usp records)? Report findings @ -No old charts were reviewed Differential Diagnosis (chest pain, altered mental status, abdominal pain women, abdominal pain men, vaginal bleeding, weakness, fever, dyspnea, syncope, headache, dizziness, GI bleed, back pain, seizure, CVA, palpatations, mental health, musculoskeletal)? @ -Dental infection, dental abscess, gingivitis, dental fracture, this list is not all-inclusive EKG interpreted by me (3pts min.). @ -None X-rays interpreted by me (1pt min.). @ -None done CT interpreted by me (1pt min.). @ -None done U/S interpreted by me (1pt. min.). @ -None done What testing was considered but not performed or refused? (CT, X-rays, U/S, labs)? Why? @ -None What meds were considered but not given or refused? Why? @ -None Did you discuss the management of the patient with other professionals (professionals i.e. Dr., PA, STATISTICAL PROGRAMMER ANALYST, lab, RT, psych nurse, licensed clinical social worker, environmental change analyst, teacher, combat information center officer, social work case manager)? Give summary @ -No Was smoking cessation discussed for >3mins.? @ -No Was critical care preformed (if so, how long)? @ -No Were there social determinants of health that impacted care today? How? (Homelessness, low income, unemployed, alcoholism, drug addiction, transportation, low edu. Level, literacy, decrease access to med. care, intermediate, rehab)? @ -No Was there de-escalation of care discussed even if they declined (Discuss DNR or withdrawal of care, Hospice)? DNR status @ -No What co-morbidities impacted this encounter? (DM, HTN, Smoking, COPD, CAD, Cancer, CVA, ARF, Chemo, Hep., AIDS, mental health diagnosis, sleep apnea, morbid obesity)? @ -None Was patient admitted / discharged? Hospital course, mention meds given and route, prescriptions, significant lab abnormalities, going to OR and other pertinent info. @ -Discharge patient has evidence of dental infection was placed on Augmentin. Patient discharged with ibuprofen advised follow-up with dentist return parameters were discussed. Undiagnosed new problem with uncertain prognosis? @ -No Drug Therapy requiring intensive monitoring for toxicity (Heparin, Nitro, Insulin, Cardizem)? @ -No Were any procedures done? @ -No Diagnosis/symptom? @ -Dental infection Acute, or Chronic, or Acute on Chronic? @ -Acute Uncomplicated (without systemic symptoms) or Complicated (systemic symptoms)? @ -Uncomplicated Side effects of treatment? @ -No Exacerbation, Progression, or Severe Exacerbation? @ -No Poses a threat to life or bodily function? How? (Chest pain, [place], [place], pneumonia, PE, COPD, DKA, ARF, appy, cholecystitis, CVA, Diverticulitis, Homicidal, Suicidal, threat to staff... and all critical care pts) @ -No Disposition Clinical Impression: Dental infection Disposition: HOME SELF-CARE Condition: Stable Instructions (If sedation given, give patient instructions): Toothache (ED) Additional Instructions: Please return to the Emergency Department if symptoms worsen or any other concerns. Prescriptions: Amoxic-Pot Clav 875-125Mg [Augmentin 875-125] 1 tab PO Q12HR #20 tab Ibuprofen [Motrin] 600 mg PO Q8HR PRN #20 tab PRN Reason: Pain Is patient prescribed a controlled substance at d/c from ED?: No Referrals: Christian Sorto MD [Primary Care Provider] - 1-2 days Time of Disposition: 16:50
[2023-01-16 17:13] VITALS: BP 157/97; PULSE 82; RESP 16; TEMP 99.1
== END 2023-01-16 17:13 | disposition home or self-care (01) ==
LOC: EC 15:55
DX: K04.7 Periapical abscess without sinus (principal); F41.9 Anxiety disorder, unspecified; F17.200 Nicotine dependence, unspecified, uncomplicated; F12.90 Cannabis use, unspecified, uncomplicated
CPT/HCPCS: 99283

== ENCOUNTER 2023-01-24 00:42 | Emergency (ER) | payer OTHER ==
[2023-01-24] MEDS ORDERED: ETOMIDATE 2 MG/ML 10 ML VIAL IVP STA (00:43)
[2023-01-24] MEDS ORDERED: ROCURONIUM 10 MG/ML (5 ML VIAL) IV ONE (00:43)
[2023-01-24 00:49] VITALS: BP 144/108; PULSE 59; RESP 16
[2023-01-24 01:08] LABS: Basophils # (A) 0.1 k/uL (0-0.2); Basophils % (A) 0 %; Eosinophils # (A) 0.8 k/uL (0-0.7); Eosinophils % (A) 5 %; HCT 45.2 % (39.0-53.0); HGB 15.1 gm/dL (13.0-17.5); Lymphocytes % (A) 31 %; MCH 31.9 pg (25.0-35.0); MCHC 33.4 g/dL (31.0-37.0); MCV 95.2 fL (80.0-100.0); Mean Platelet Volume 10.5; Monocytes # (A) 0.2 k/uL (0-1.0); Monocytes % (A) 1 %; Neutrophils # (A) 9.8 k/uL (1.3-7.7); Neutrophils % (A) 62 %; Platelet Count 192 k/uL (150-450); RBC 4.74 m/uL (4.30-5.90); RDW 13.9 % (11.5-15.5)
[2023-01-24] MEDS ORDERED: DIPH,PERTUS(ACELL)TETVAC-LF 0.5 ML VIAL IM ONE (01:20)
[2023-01-24 01:35] LABS: Amphetamine Screen,Urine Not Detected (NotDetected); Barbiturate Screen,Urine Not Detected (NotDetected); Benzodiazepines Screen,Urine Not Detected (NotDetected); Cocaine Screen,Urine Not Detected (NotDetected); Methadone Screen, Urine Not Detected (NotDetected); Opiate Screen,Urine Not Detected (NotDetected); Oxycodone Screen, Urine Not Detected (NotDetected); Phencyclidine Screen,Urine Not Detected (NotDetected); Tricyclic Antidepressant,Urine Not Detected (NotDetected); Urn Cannabinoid Scrn Not Detected (NotDetected)
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
[2023-01-24 02:01] LABS: ALT 37 U/L (4-49); AST 51 U/L (17-59); African American GFR (CKD) >90 (>60 ml/min/1.73 sqM); Albumin 3.6 g/dL (3.5-5.0); Alcohol <10 mg/dL; Alkaline Phosphatase 57 U/L (38-126); Anion Gap 11 mmol/L; Blood Urea Nitrogen 17 mg/dL (9-20); Calcium 8.2 mg/dL (8.4-10.2); Carbon Dioxide 21 mmol/L (22-30); Chloride 103 mmol/L (98-107); Glucose 194 mg/dL (74-99); Non-African American GFR(CKD) >90 (>60 ml/min/1.73 sqM); Potassium 3.6 mmol/L (3.5-5.1); Sodium 135 mmol/L (137-145); Total Bilirubin 0.6 mg/dL (0.2-1.3); Total Protein 6.3 g/dL (6.3-8.2)
[2023-01-24] MEDS ORDERED: TOPICAL SKIN ADHESIVE 1 EACH AMP TOPICAL ONE (02:03)
[2023-01-24 02:09] LABS: INR 1.1 (<1.2); Prothrombin Time 11.2 sec (9.0-12.0)
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
[2023-01-24 02:46] LABS: Partial Thromboplastin Time 18.9 sec (22.0-30.0)
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
== END 2023-01-24 02:15 | disposition other institution (70) ==
LOC: EC 00:42
DX: S01.81XA Laceration without foreign body of other part of head, initial encounter (principal); S06.360A Traumatic hemorrhage of cerebrum, unspecified, without loss of consciousness, initial encounter; J96.90 Respiratory failure, unspecified, unspecified whether with hypoxia or hypercapnia; F41.9 Anxiety disorder, unspecified; F17.200 Nicotine dependence, unspecified, uncomplicated; F12.90 Cannabis use, unspecified, uncomplicated; V89.2XXA Person injured in unspecified motor-vehicle accident, traffic, initial encounter
CPT/HCPCS: 99291; 96365; 96375 ×2; 31500; 36415; 93005; 86900; 86901; 80053; 84484; 85025; 85610; 85730; 86850; 80306; 80320; 72170; 71045; 72129; 72125; 72132; 70486; 70450; 71260; 74177; J0690; Q9967